=== PATIENT | female | born 1930 | race Caucasian/White ===

== ENCOUNTER 2019-01-31 13:42 | Inpatient (IN) ==
[2019-01-31] MEDS ORDERED: 0.9 % Sodium Chloride 1,000 ML IVC ONE (14:02)
--- NOTE | 2019-01-31 14:05 | Emergency Department Note ---
Disposition Clinical Impression: Near syncope, NSTEMI (non-ST elevated myocardial infarction) Fatigue Qualifiers: Fatigue type: unspecified Qualified Code(s): R53.83 - Other fatigue Disposition: Admitted As Inpatient Condition: Good Referrals: Maco Rollins MD [Primary Care Provider] - Forms: ED Satisfaction Letter Time of Disposition: 17:20 Dizziness HPI - General Chief Complaint: ED Dizziness Stated Complaint: Hypotension "woozy" Time Seen by Provider: 01/31/19 13:50 Source: patient Mode of arrival: wheelchair Limitations: no limitations Nursing Notes Reviewed: Yes Vital Signs Reviewed: Yes - History of Present Illness HPI Narrative: Patient is an 88-year-old female with past medical history of hypertension, hyperlipidemia, previous CVA and is currently on aspirin 325 mg daily. She presents today due to concern for near syncope and mild confusion. Patient states that she was at home about an hour or hour and a half prior to arrival cooking dinner. She had been standing in her kitchen. She sat down at her table and began to feel lightheaded like she was going to pass out. She also felt very fatigued. She denied any symptoms of numbness, tingling, weakness, facial droop, slurred speech, chest pain, shortness breath, nausea, vomiting, diarrhea, abdominal pain, chest pain. She said that the symptoms lasted for about 30 or 45 minutes and then went away. Her family member states that she was somewhat listless and very slow to respond to questions during this episode. She denies ever having anything like this happen before. She currently states that she has no symptoms of lightheadedness but she just feels overall fatigued. Denies any previous SC or stent history. She did not fall, did not hit her head, denies any neck or back pain. She states that she took a blood pressure home with a wrist cuff and it was systolic 118. - Related Data Home Medications Medication Instructions Recorded Confirmed Bisoprolol/HCTZ 5/6.25 [Ziac 1 tab PO BID 03/04/16 01/31/19 5/6.25] [place]-3/Dha/Epa/Fish Oil [Fish Oil 1 cap PO HS 03/04/16 01/31/19 1,000 mg Softgel] Omeprazole [PriLOSEC] 20 mg PO DAILY 03/04/16 01/31/19 Atorvastatin [Lipitor] 40 mg PO DAILY 01/31/19 01/31/19 Loratadine [Allergy Relief] 10 mg PO DAILY 01/31/19 01/31/19 Losartan Potassium 25 mg PO DAILY 01/31/19 01/31/19 Multivit/Ca/Min/Fe/FA [Thera M 1 tab PO DAILY 01/31/19 01/31/19 Plus] Oxybutynin Chloride [Ditropan Xl] 10 mg PO DAILY 01/31/19 01/31/19 Previous Rx's Medication Instructions Recorded Aspirin 325 mg PO DAILY #30 tablet 08/26/16 Allergies Allergy/AdvReac Type Severity Reaction Status Date / Time No Known Allergies Allergy Verified 02/18/16 13:11 All systems ED: reviewed and negative except as stated. Constitutional: Denies: fever Cardiovascular: Denies: chest pain Respiratory: Denies: dyspnea Gastrointestinal: Denies: abdominal pain, nausea, vomiting, diarrhea Genitourinary: Denies: urgency, dysuria Musculoskeletal: Denies: neck pain Neurological: Reports: other (light headed and mild confusion). Denies: headache, weakness, numbness, paresthesias Endocrine: Reports: fatigue Past Medical History - Past Medical History Attestation: Yes The following information was validated with the patient. Source: patient Medical history: Reports: GERD, hyperlipidemia, hypertension, other Surgical history: Reports: other Psychiatric history: Reports: no psych history - Social History Smoking Status: Never smoker Smokeless Tobacco Status: No Alcohol use: Reports: none, occasionally Drug use: Reports: none Physical Exam - General Limitations: no limitations General appearance: alert, in no apparent distress - Head Head exam: atraumatic, normocephalic, normal inspection - Eye Eye exam: Present: normal appearance, PERRL, EOMI - ENT ENT exam: normal oropharynx, other (Mildly tacky mucous membranes) - Neck Neck exam: Present: normal inspection, full ROM, trachea midline - Chest Chest inspection: Present: normal inspection, symmetric chest wall rise - Respiratory Respiratory exam: Present: normal lung sounds bilaterally - Cardiovascular Cardiovascular exam: Present: regular rate, normal rhythm, normal heart sounds - Abdominal Exam Abdominal exam: Present: soft, Non-Tender. Absent: tenderness, distention, guarding, rebound, rigidity - Extremities Exam Extremities exam: Present: normal inspection, full ROM. Absent: tenderness, pedal edema - Neurological Exam Neurological exam: Present: alert, oriented X3, CN II-XII intact. Absent: motor sensory deficit - Expanded Neurological Exam Patient oriented to: Present: person, place, time Speech: Present: fluid speech Cranial nerves: EOM function (II, III, IV, ): Normal, facial sensation (V): Normal, facial palsy (VII): Normal, spinal accessory function (XI): Normal, ton pramod deviation (XII): Normal Cerebellar function: finger to nose: Normal Motor strength - LUE: 5/5 Motor strength - RUE: 5/5 Motor strength - LLE: 5/5 Motor strength - RLE: 5/5 Sensory exam upper extremity: light touch: Normal Sensory exam lower extremity: light touch: Normal Coma Scale Eye Opening: Spontaneous Coma Scale Motor Response: Obeys Commands Coma Scale Verbal Response: Oriented Coma Scale Total: 15 - Psychiatric Psychiatric exam: Present: normal affect, normal mood - Skin Skin exam: Present: warm, dry, intact, normal color Course Course Narrative: Patient's systolic blood pressure was 108 on presentation. Otherwise, the rest of vitals within normal limits on my exam. NIH of 0. No focal neurologic deficits. Rest of physical exam is benign. Patient currently has fatigue but no other symptoms. Some of her symptoms sounds vasovagal in nature. However, she does have a stroke history in her symptoms were prolonged for about 30 or 45 minutes. We will go ahead and obtain CT the head. Also obtain basic blood work, EKG, chest x-ray, troponin. We will also give the patient 1 L normal saline bolus that she had mildly tacky mucous membranes on presentation and systolic blood pressure was 108. We will reevaluate after fluids and labs. 15:40 chest x-ray negative for any acute cardiopulmonary process. Troponin 0.23. EKG shows normal sinus rhythm with no acute ST elevation or depression. There are some T-wave inversions in lead 3, V4 through V6. Patient was reevaluated and she still has no chest pain or shortness of breath. She states that symptomatically, she is feeling less fatigued. We discussed starting her on heparin and admitting for further care for possible NSTEMI. She is agreeable to this plan and has no contra indications to heparin at this time. Currently waiting on head CT and then will admit for further care. 17:[address] negative. 17:[address] Mendieta. Chest X-Ray 01/31/19 14:01 IMPRESSION: No acute process. Stable exam. D/ / Andry Beavers MD / Andry Beavers MD Interpreting Provider: Andry Beavers MD Head CT 01/31/19 14:01 IMPRESSION: No acute intracranial abnormality. [id number] cerebral atrophy appropriate for age. Mild chronic ischemic changes also present. No significant change from the prior study. D/ / Ab Robbins MD / Ab Robbins MD Interpreting Provider: Ab Robbins MD Chest X-Ray 01/31/19 14:01 IMPRESSION: No acute process. Stable exam. D/ / Andry Beavers MD / Andry Beavers MD Interpreting Provider: Andry Beavers MD Vital Signs Temperature 97.8 F 01/31/19 13:44 Pulse Rate 54 01/31/19 13:44 Respiratory Rate 18 01/31/19 13:44 Blood Pressure 108/66 01/31/19 13:44 O2 Sat by Pulse Oximetry 93 01/31/19 13:44 Temperature 97.8 F 01/31/19 13:44 Pulse Rate 55 01/31/19 15:10 Respiratory Rate 18 01/31/19 15:10 Blood Pressure 124/54 01/31/19 15:10 O2 Sat by Pulse Oximetry 100 01/31/19 15:10 Oxygen Delivery Oxygen Delivery Room Air Dizziness - MDM Narrative Medical decision making narrative: Patient's systolic blood pressure was 108 on presentation. Otherwise, the rest of vitals within normal limits on my exam. NIH of 0. No focal neurologic deficits. Rest of physical exam is benign. Patient currently has fatigue but no other symptoms. Some of her symptoms sounds vasovagal in nature. However, she does have a stroke history in her symptoms were prolonged for about 30 or 45 minutes. We will go ahead and obtain CT the head. Also obtain basic blood work, EKG, chest x-ray, troponin. We will also give the patient 1 L normal saline bolus that she had mildly tacky mucous membranes on presentation and systolic blood pressure was 108. We will reevaluate after fluids and labs. 15:40 chest x-ray negative for any acute cardiopulmonary process. Troponin 0.23. EKG shows normal sinus rhythm with no acute ST elevation or depression. There are some T-wave inversions in lead 3, V4 through V6. Patient was reevaluated and she still has no chest pain or shortness of breath. She states that symptomatically, she is feeling less fatigued. We discussed starting her on heparin and admitting for further care for possible NSTEMI. She is agreeable to this plan and has no contra indications to heparin at this time. Currently waiting on head CT and then will admit for further care. 17:[address] negative. 17:[address] Mendieta. - Medical Records Medical records reviewed: Yes I reviewed the patient's medical records. - Lab Data Lab results reviewed: Yes I reviewed the patient's lab results. Result diagrams: 01/31/19 15:55 01/31/19 14:29 Lab Results 01/31/19 01/31/19 01/31/19 Range/Units 14:24 14:29 14:29 WBC 8.0 (4.3-11.1) K/mcL RBC 4.21 (3.82-4.97) M/mcL Hgb 13.0 (11.5-15.4) g/dL Hct 39.5 (35.3-44.9) % MCV 93.8 (83.0-100.0) fL MCH 30.9 (28.0-33.3) pg MCHC 32.9 (31.6-35.5) g/dL RDW 13.5 (11.5-14.5) % Plt Count 237 (140-400) K/mcL MPV 9.4 (9.4-12.4) fL Immature Gran % 0.6 (0-4) % Seg Neutrophils % 62.4 % Lymphocytes % 25.9 % Monocytes % 7.6 % Eosinophils % 2.4 % Basophils % 1.1 % Neutrophils # 5.0 (1.6-8.9) K/mcL Lymphocytes # 2.1 (0.6-4.6) K/mcL Monocytes # 0.6 (0.0-1.3) K/mcL Eosinophils # 0.2 (0.0-0.6) K/mcL Basophils # 0.1 (0.0-0.2) K/mcL PT (9.4-12.1) Seconds INR Heparin Anti-Xa, Unfract (0.30-0.70) IU/mL Sodium 136 (136-145) mEq/L Potassium 4.4 (3.5-5.1) mEq/L Chloride 105 (98-107) mEq/L Carbon Dioxide 21 L (23-29) mEq/L BUN 35 H (8-23) mg/dL Creatinine 1.22 H (0.60-1.20) mg/dL Est GFR ( Amer) 51 L (> 60) Est GFR (Non-Af Amer) 42 L (> 60) BUN/Creatinine Ratio 29 H (6-26) Glucose 130 H (70-105) mg/dL Calculated Osmolality 292 (280-300) Calcium 9.7 (8.6-10.3) mg/dL Total Bilirubin 0.4 (0.3-1.0) mg/dL AST 18 (13-39) Units/L ALT 13 (7-52) Units/L Alkaline Phosphatase 64 (34-104) Units/L Troponin I 0.23 H* (< 0.04) ng/mL Serum Total Protein 6.9 (6.4-8.9) g/dL Albumin 4.1 (3.5-5.7) g/dL Globulin 2.8 (2.4-3.5) g/dL Albumin/Globulin Ratio 1.5 (1.1-2.2) Urine Color Yellow (Yellow) Urine Clarity Clear (Clear) Urine pH 5.0 (5.0-8.0) pH Units Ur Specific [place] 1.026 H (1.010-1.025) Urine Protein Negative (Neg-Trace) mg/dL Urine Glucose (UA) Normal (Normal) mg/dL Urine Ketones Negative (Negative) mg/dL Urine Blood Negative (Negative) Urine Nitrite Negative (Negative) Urine Bilirubin Small H (Negative) Urine Urobilinogen Normal (Normal) mg/dL Ur Leukocyte Esterase Small H (Negative) Urine Microscopic RBC 0-3 (0-3) per hpf Urine Microscopic WBC 0-3 (0-3) per hpf Ur Squamous Epith Cells Many H (None-Few) per lpf Urine Bacteria None Seen (None-Few) per hpf Hyaline Casts None Seen (None-Few) per lpf Ur Culture Indicated? NO. A (NO) 01/31/19 01/31/19 Range/Units 15:55 15:55 WBC 10.9 (4.3-11.1) K/mcL RBC 4.14 (3.82-4.97) M/mcL Hgb 12.7 (11.5-15.4) g/dL Hct 39.0 (35.3-44.9) % MCV 94.2 (83.0-100.0) fL MCH 30.7 (28.0-33.3) pg MCHC 32.6 (31.6-35.5) g/dL RDW 13.4 (11.5-14.5) % Plt Count 237 (140-400) K/mcL MPV 9.3 L (9.4-12.4) fL Immature Gran % (0-4) % Seg Neutrophils % % Lymphocytes % % Monocytes % % Eosinophils % % Basophils % % Neutrophils # (1.6-8.9) K/mcL Lymphocytes # (0.6-4.6) K/mcL Monocytes # (0.0-1.3) K/mcL Eosinophils # (0.0-0.6) K/mcL Basophils # (0.0-0.2) K/mcL PT 10.2 (9.4-12.1) Seconds INR 0.9 Heparin Anti-Xa, Unfract 0.02 L (0.30-0.70) IU/mL Sodium (136-145) mEq/L Potassium (3.5-5.1) mEq/L Chloride (98-107) mEq/L Carbon Dioxide (23-29) mEq/L BUN (8-23) mg/dL Creatinine (0.60-1.20) mg/dL Est GFR ( Amer) (> 60) Est GFR (Non-Af Amer) (> 60) BUN/Creatinine Ratio (6-26) Glucose (70-105) mg/dL Calculated Osmolality (280-300) Calcium (8.6-10.3) mg/dL Total Bilirubin (0.3-1.0) mg/dL AST (13-39) Units/L ALT (7-52) Units/L Alkaline Phosphatase (34-104) Units/L Troponin I (< 0.04) ng/mL Serum Total Protein (6.4-8.9) g/dL Albumin (3.5-5.7) g/dL Globulin (2.4-3.5) g/dL Albumin/Globulin Ratio (1.1-2.2) Urine Color (Yellow) Urine Clarity (Clear) Urine pH (5.0-8.0) pH Units Ur Specific [place] (1.010-1.025) Urine Protein (Neg-Trace) mg/dL Urine Glucose (UA) (Normal) mg/dL Urine Ketones (Negative) mg/dL Urine Blood (Negative) Urine Nitrite (Negative) Urine Bilirubin (Negative) Urine Urobilinogen (Normal) mg/dL Ur Leukocyte Esterase (Negative) Urine Microscopic RBC (0-3) per hpf Urine Microscopic WBC (0-3) per hpf Ur Squamous Epith Cells (None-Few) per lpf Urine Bacteria (None-Few) per hpf Hyaline Casts (None-Few) per lpf Ur Culture Indicated? (NO) - Radiology Data Radiology results reviewed: Yes I reviewed the patient's radiology results. - EKG Data EKG attestation: Yes I reviewed and interpreted this EKG. EKG results narrative: 01/31/2019 at 14:09. Sinus rhythm. Rate 55. ME 206. QTC 460. Left axis deviation. No acute ST elevation or depression. T wave inversions in lead III, V4-V6 S.B.A.R. - S.B.A.R. Situation: Demographics, MOA Background: Presenting Complaint, Relevant PMH, Meds, & Allergies Assessment: Vital Signs, Course and respsone to treatment, Exam Concerns, Patient/Family Expectation, Pertinant Lab Results Recommendation: Barrier(s) to disposition, Recommendation based on pending studies, treatments, or consults S.B.A.RKajal Report Given to: Dr. Anam WareAHeather Repor Time: 17:21 NIH Stroke Scale - Level of Consciousness LOC: Alert - LOC Questions LOC Questions: Answers both correctly - LOC Commands LOC Commands: Performs both correctly - Best Gaze Best Gaze: Normal - Visual Visual: No visual loss - Facial Palsy Facial Palsy: Normal - Motor Arms Motor Arm-Left: No drift for 10 seconds Motor Arm-Right: No drift for 10 seconds - Motor Legs Motor Leg-Left: No drift for 5 seconds Motor Leg-Right: No drift for 5 seconds - Limb Ataxia Limb Ataxia: Absent of affected limb too weak to perform exam - Sensory Sensory: Normal - Best Language Best Language: No aphasia - Dysarthria Dysarthria: Normal - Extinction and Inattention Extinction and Inattention: Normal - NIHSS Total Score NIHSS Total Score: 0
--- NOTE | 2019-01-31 14:06 | Emergency Department Note ---
Disposition Clinical Impression: Fatigue, Near syncope, NSTEMI (non-ST elevated myocardial infarction) Disposition: Admitted As Inpatient Condition: Good General Adult HPI - General Chief complaint: ED Dizziness Stated complaint: Hypotension "woozy" Time Seen by Provider: 01/31/19 13:50 Source: patient Limitations: no limitations - History of Present Illness Pain Scale: 0 - Related Data Home Medications Medication Instructions Recorded Confirmed RX: Bisoprolol/HCTZ 5/6.25 [Ziac 1 tab PO BID 03/04/16 01/31/19 5/6.25] RX: [place]-3/Dha/Epa/Fish Oil [Fish 1 cap PO HS 03/04/16 01/31/19 Oil 1,000 mg Softgel] RX: Omeprazole [PriLOSEC] 20 mg PO DAILY 03/04/16 01/31/19 Loratadine [Allergy Relief] 10 mg PO DAILY 01/31/19 01/31/19 Oxybutynin Chloride [Ditropan Xl] 10 mg PO DAILY 01/31/19 01/31/19 RX: Atorvastatin [Lipitor] 40 mg PO DAILY 01/31/19 01/31/19 RX: Losartan Potassium 25 mg PO DAILY 01/31/19 01/31/19 RX: Multivit/Ca/Min/Fe/FA [Thera M 1 tab PO DAILY 01/31/19 01/31/19 Plus] Previous Rx's Medication Instructions Recorded RX: Aspirin 325 mg PO DAILY #30 tablet 08/26/16 Allergies Allergy/AdvReac Type Severity Reaction Status Date / Time No Known Allergies Allergy Verified 02/18/16 13:11 Past Medical History - Past Medical History Medical history: Reports: GERD, hyperlipidemia, hypertension, other Surgical history: Reports: other Psychiatric history: Reports: no psych history - Social History Smoking Status: Never smoker Smokeless Tobacco Status: No Alcohol use: Reports: none, occasionally Drug use: Reports: none Physical Exam - General Limitations: no limitations General appearance: alert, in no apparent distress Course Vital Signs Temperature 97.8 F 01/31/19 13:44 Pulse Rate 54 01/31/19 13:44 Respiratory Rate 18 01/31/19 13:44 Blood Pressure 108/66 01/31/19 13:44 O2 Sat by Pulse Oximetry 93 01/31/19 13:44 Temperature 98.0 F 04/21/19 18:36 Pulse Rate 51 01/31/19 18:36 Respiratory Rate 16 01/31/19 18:36 Blood Pressure 194/79 01/31/19 18:36 O2 Sat by Pulse Oximetry 97 01/31/19 18:36 Oxygen Delivery Oxygen Delivery Room Air Medical Decision Making - Lab Data Result diagrams: 01/31/19 15:55 01/31/19 14:29 Lab Results 01/31/19 01/31/19 01/31/19 Range/Units 14:24 14:29 14:29 WBC 8.0 (4.3-11.1) K/mcL RBC 4.21 (3.82-4.97) M/mcL Hgb 13.0 (11.5-15.4) g/dL Hct 39.5 (35.3-44.9) % MCV 93.8 (83.0-100.0) fL MCH 30.9 (28.0-33.3) pg MCHC 32.9 (31.6-35.5) g/dL RDW 13.5 (11.5-14.5) % Plt Count 237 (140-400) K/mcL MPV 9.4 (9.4-12.4) fL Immature Gran % 0.6 (0-4) % Seg Neutrophils % 62.4 % Lymphocytes % 25.9 % Monocytes % 7.6 % Eosinophils % 2.4 % Basophils % 1.1 % Neutrophils # 5.0 (1.6-8.9) K/mcL Lymphocytes # 2.1 (0.6-4.6) K/mcL Monocytes # 0.6 (0.0-1.3) K/mcL Eosinophils # 0.2 (0.0-0.6) K/mcL Basophils # 0.1 (0.0-0.2) K/mcL PT (9.4-12.1) Seconds INR Heparin Anti-Xa, Unfract (0.30-0.70) IU/mL Sodium 136 (136-145) mEq/L Potassium 4.4 (3.5-5.1) mEq/L Chloride 105 (98-107) mEq/L Carbon Dioxide 21 L (23-29) mEq/L BUN 35 H (8-23) mg/dL Creatinine 1.22 H (0.60-1.20) mg/dL Est GFR ( Amer) 51 L (> 60) Est GFR (Non-Af Amer) 42 L (> 60) BUN/Creatinine Ratio 29 H (6-26) Glucose 130 H (70-105) mg/dL Calculated Osmolality 292 (280-300) Calcium 9.7 (8.6-10.3) mg/dL Total Bilirubin 0.4 (0.3-1.0) mg/dL AST 18 (13-39) Units/L ALT 13 (7-52) Units/L Alkaline Phosphatase 64 (34-104) Units/L Troponin I 0.23 H* (< 0.04) ng/mL Serum Total Protein 6.9 (6.4-8.9) g/dL Albumin 4.1 (3.5-5.7) g/dL Globulin 2.8 (2.4-3.5) g/dL Albumin/Globulin Ratio 1.5 (1.1-2.2) Urine Color Yellow (Yellow) Urine Clarity Clear (Clear) Urine pH 5.0 (5.0-8.0) pH Units Ur Specific [place] 1.026 H (1.010-1.025) Urine Protein Negative (Neg-Trace) mg/dL Urine Glucose (UA) Normal (Normal) mg/dL Urine Ketones Negative (Negative) mg/dL Urine Blood Negative (Negative) Urine Nitrite Negative (Negative) Urine Bilirubin Small H (Negative) Urine Urobilinogen Normal (Normal) mg/dL Ur Leukocyte Esterase Small H (Negative) Urine Microscopic RBC 0-3 (0-3) per hpf Urine Microscopic WBC 0-3 (0-3) per hpf Ur Squamous Epith Cells Many H (None-Few) per lpf Urine Bacteria None Seen (None-Few) per hpf Hyaline Casts None Seen (None-Few) per lpf Ur Culture Indicated? NO. A (NO) 01/31/19 01/31/19 Range/Units 15:55 15:55 WBC 10.9 (4.3-11.1) K/mcL RBC 4.14 (3.82-4.97) M/mcL Hgb 12.7 (11.5-15.4) g/dL Hct 39.0 (35.3-44.9) % MCV 94.2 (83.0-100.0) fL MCH 30.7 (28.0-33.3) pg MCHC 32.6 (31.6-35.5) g/dL RDW 13.4 (11.5-14.5) % Plt Count 237 (140-400) K/mcL MPV 9.3 L (9.4-12.4) fL Immature Gran % (0-4) % Seg Neutrophils % % Lymphocytes % % Monocytes % % Eosinophils % % Basophils % % Neutrophils # (1.6-8.9) K/mcL Lymphocytes # (0.6-4.6) K/mcL Monocytes # (0.0-1.3) K/mcL Eosinophils # (0.0-0.6) K/mcL Basophils # (0.0-0.2) K/mcL PT 10.2 (9.4-12.1) Seconds INR 0.9 Heparin Anti-Xa, Unfract 0.02 L (0.30-0.70) IU/mL Sodium (136-145) mEq/L Potassium (3.5-5.1) mEq/L Chloride (98-107) mEq/L Carbon Dioxide (23-29) mEq/L BUN (8-23) mg/dL Creatinine (0.60-1.20) mg/dL Est GFR ( Amer) (> 60) Est GFR (Non-Af Amer) (> 60) BUN/Creatinine Ratio (6-26) Glucose (70-105) mg/dL Calculated Osmolality (280-300) Calcium (8.6-10.3) mg/dL Total Bilirubin (0.3-1.0) mg/dL AST (13-39) Units/L ALT (7-52) Units/L Alkaline Phosphatase (34-104) Units/L Troponin I (< 0.04) ng/mL Serum Total Protein (6.4-8.9) g/dL Albumin (3.5-5.7) g/dL Globulin (2.4-3.5) g/dL Albumin/Globulin Ratio (1.1-2.2) Urine Color (Yellow) Urine Clarity (Clear) Urine pH (5.0-8.0) pH Units Ur Specific [place] (1.010-1.025) Urine Protein (Neg-Trace) mg/dL Urine Glucose (UA) (Normal) mg/dL Urine Ketones (Negative) mg/dL Urine Blood (Negative) Urine Nitrite (Negative) Urine Bilirubin (Negative) Urine Urobilinogen (Normal) mg/dL Ur Leukocyte Esterase (Negative) Urine Microscopic RBC (0-3) per hpf Urine Microscopic WBC (0-3) per hpf Ur Squamous Epith Cells (None-Few) per lpf Urine Bacteria (None-Few) per hpf Hyaline Casts (None-Few) per lpf Ur Culture Indicated? (NO) Critical Care Time Critical Care Time: Yes Total Critical Care Time: 30 Attestation: The high probability of a clinically significant, sudden or life threatening deterioration of the [] system(s) required my full and direct attention, intervention and personal management. The aggregate critical care time was [] minutes. This time is in addition to time spent performing reported procedures but includes the following: [] Data Review and interpretation [] Patient assessment and monitoring of vital signs [] Documentation [] Medication orders and management Attestation Statement - Attestation Attestation: I examined this patient and my medical decision-making was reviewed with the Resident Physician. I agree with the documented findings, disposition and treatment plan as described except to the extent set forth below. Face to face time provided Patient to ED with lightheadedness and low BP. Triage vitals reviewed by me. Patient appears in no acute distress on exam. I attest to supervising the resident physician's interpretation of the ECG
[2019-01-31 14:32] LABS: Bilirubin,Urine Small (Negative); Blood,Urine Negative (Negative); Clarity,Urine Clear (Clear); Color,Urine Yellow (Yellow); Glucose,Urine (UA) Normal (Normal); Ketones,Urine Negative (Negative); Leukocyte Esterase,Urine Small (Negative); Nitrite,Urine Negative (Negative); Protein,Urine Negative (Neg-Trace); Specific Gravity,Urine 1.026 (1.010-1.025); Urobilinogen,Urine Normal (Normal)
[2019-01-31 14:34] LABS: Bacteria,Urine None Seen per hpf (None-Few); Hyaline Casts,Urine None Seen per lpf (None-Few); RBC,Urine 0-3 per hpf (0-3); Squamous Epithelial Cell,Urine Many per lpf (None-Few); WBC,Urine 0-3 per hpf (0-3)
[2019-01-31 14:54] LABS: Basophils # 0.1 K/mcL (0.0-0.2); Basophils % 1.1 %; Eosinophils # 0.2 K/mcL (0.0-0.6); Eosinophils % 2.4 %; Hematocrit 39.5 % (35.3-44.9); Immature Granulocytes % 0.6 % (0-4); Lymphocytes # 2.1 K/mcL (0.6-4.6); Lymphocytes % 25.9 %; Mean Corpuscular HGB Conc 32.9 g/dL (31.6-35.5); Mean Corpuscular Hemoglobin 30.9 pg (28.0-33.3); Mean Corpuscular Volume 93.8 fL (83.0-100.0); Mean Platelet Volume 9.4 fL (9.4-12.4); Monocytes # 0.6 K/mcL (0.0-1.3); Monocytes % 7.6 %; Platelet Count 237 K/mcL (140-400); Red Blood Count 4.21 M/mcL (3.82-4.97); Red Cell Distribution Width 13.5 % (11.5-14.5); Segmented Neutrophils % 62.4 %
[2019-01-31 15:16] LABS: Albumin 4.1 g/dL (3.5-5.7); Albumin/Globulin Ratio 1.5 (1.1-2.2); Bilirubin,Total 0.4 mg/dL (0.3-1.0); Calcium 9.7 mg/dL (8.6-10.3); Globulin 2.8 g/dL (2.4-3.5); Potassium 4.4 mEq/L (3.5-5.1); Total Protein 6.9 g/dL (6.4-8.9)
[2019-01-31 15:19] LABS: Troponin I 0.23 ng/mL (< 0.04)
[2019-01-31] MEDS ORDERED: *HR* Heparin 5,000 UNIT/ML VIAL IVP ONE ×2 (15:34→15:46)
[2019-01-31] MEDS ORDERED: *HR* Heparin 5,000 UNIT/ML VIAL IVP PRN ×4 (15:34→15:46)
[2019-01-31] MEDS ORDERED: Heparin 25,000 UNIT/250 ML D5W 25,000 UNIT/250 ML IV.SOLN IVC SCH (15:45)
[2019-01-31 16:05] LABS: Hemoglobin 12.7 g/dL (11.5-15.4); Mean Corpuscular HGB Conc 32.6 g/dL (31.6-35.5); Mean Corpuscular Hemoglobin 30.7 pg (28.0-33.3); Mean Corpuscular Volume 94.2 fL (83.0-100.0); Mean Platelet Volume 9.3 fL (9.4-12.4); Platelet Count 237 K/mcL (140-400); Red Blood Count 4.14 M/mcL (3.82-4.97); Red Cell Distribution Width 13.4 % (11.5-14.5)
[2019-01-31 16:19] LABS: Heparin anti-factor XA UFH 0.02 IU/mL (0.30-0.70)
[2019-01-31 16:20] LABS: INR 0.9; Prothrombin Time 10.2 Seconds (9.4-12.1)
[2019-01-31] MEDS: Heparin 25,000 UNIT/250 ML D5W 25,000 UNIT/250 ML IV.SOLN IVC SCH (17:17)
[2019-01-31] MEDS ORDERED: Naloxone 0.4 MG/ML INJ IVP PRN (17:49)
--- NOTE | 2019-01-31 17:58 | Internal Med History&Physical ---
Date of Encounter: 02/01/19 Time of Encounter: 17:56 Internal Medicine - H&P: HPI Chief complaint: lightheadness Admitted From: Home Plans for Post Hospital Care: Home History of present illness: Ms. Pritchett is a 88 year old female past medical history of hypertension, hyperlipidemia, CVA in 2016 with no residual symptoms came in with complain of lightheadedness. Patient called her full duties afternoon and after she sat down she started feeling dizziness and lightheadedness. During the episode per family member she was slow to respond and she mentioned she was trying not to pass out. She denied any chest pain or difficulty breathing or palpitation associated with it. The episode lasted about 30-40 minutes. Patient did not experience any loss of consciousness or fall. She denies any previous similar episodes. She does not have any previous cardiac history. She takes aspirin 325 after her stroke. She denies any previous cardiac catheterization or stent. Patient was related kidney ER and was found to have troponin of 0.23 and creatinine of 1.22. Head CT was unremarkable as well as chest x-ray. She received 1 L of IV fluids and was started on heparin for NSTEMI admission was requested for further management. Past Med Surg Social Fam HX - Past Medical History Medical history: CVA, GERD, hyperlipidemia, hypertension, other Additional medical history: RIGHT ROTATOR CUFF TENDINOPATHY. RIGHT SHOULDER KARINA N. INTRAMUSCULAR LIPOMA Psychiatric history: no psych history - Past Surgical History Surgical History: other Additional surgical history: RIGHT ROTATOR CUFF TEAR REPAIR 2003. BLAKE CATARCTS REMOVAL. D&C. COLONOSCOPY 2008. CHEST MASS EXCISION 11/01/14. 03/04/16 RIGHT CLAVICLE ORIF @[facility] W/DR JENNINGS - Social History Smoking Status: Never smoker Smokeless Tobacco Status: No Alcohol use: none, occasionally Drug use: none Current living situation: Home - Independent - Additional Family History Additional family history: Father had bladder ca. Mother had brain ca Internal Medicine - H&P: Meds Bisoprolol/HCTZ 5/6.25 [Ziac 5/6.25] 1 tab PO BID 03/04/16 [History] [place]-3/Dha/Epa/Fish Oil [Fish Oil 1,000 mg Softgel] 1 cap PO HS 03/04/16 [History] Omeprazole [PriLOSEC] 20 mg PO DAILY 03/04/16 [History] Aspirin 325 mg PO DAILY #30 tablet 08/26/16 [Rx] Atorvastatin [Lipitor] 40 mg PO DAILY 01/31/19 [History] Loratadine [Allergy Relief] 10 mg PO DAILY 01/31/19 [History] Losartan Potassium 25 mg PO DAILY 01/31/19 [History] Multivit/Ca/Min/Fe/FA [Thera M Plus] 1 tab PO DAILY 01/31/19 [History] Oxybutynin Chloride [Ditropan Xl] 10 mg PO DAILY 01/31/19 [History] Allergy/AdvReac Type Severity Reaction Status Date / Time No Known Allergies Allergy Verified 02/18/16 13:11 All Systems PM: A 10-system review of systems was performed and is negative for pertinent findings except as documented above in the HPI. - Constitutional Vitals: Temp Pulse Resp BP Pulse Ox 97.8 F 61 16 148/56 95 01/31/19 13:44 01/31/19 17:21 01/31/19 17:21 01/31/19 17:21 01/31/19 17:21 Exam: Constitutional: Vitals as noted. Conversant. No Apparent Distress. Eyes : Sclera white, conjunctiva clear, no lid lag, PEARLA. ENT : Grossly normal hearing. Oropharyngeal exam unremarkable. Moist mucus membranes. No JVD, no cervical lymphadenopathy. no thyromegaly or mass. Respiratory : Clear to auscultation bilaterally. No accessory muscle use, rales, rhonchi or wheezes Cardiovascular : bcardycardia, +S1, +S2. no murmur, gallop, rubs. No chest wall tenderness GI/Abdominal : Soft, Non-tender, Non-distended, normal bowel sounds, soft, no peritoneal signs. Musculoskeletal: no deformity noted. no edema or cyanosis. warm extremities, pulses palpable and symmetrical in UE/LE. no calf tenderness. Neurological: AO X3, CN II-XII grossly intact, grossly normal motor and sensory exam. Skin: No skin rash, lesions or ulcers noted. Pych: Good insight and judgement. Intact memory. AOx3. Internal Med - H&P Results - Labs CBC & Chem 7: 01/31/19 15:55 01/31/19 14:29 Labs: Short CBC 01/31/19 01/31/19 Range/Units 14:29 15:55 WBC 8.0 10.9 (4.3-11.1) K/mcL Hgb 13.0 12.7 (11.5-15.4) g/dL Hct 39.5 39.0 (35.3-44.9) % Plt Count 237 237 (140-400) K/mcL Neutrophils # 5.0 (1.6-8.9) K/mcL BMP 01/31/19 14:29 Sodium 136 Potassium 4.4 Chloride 105 Carbon Dioxide 21 L BUN 35 H Creatinine 1.22 H Glucose 130 H Calcium 9.7 Cardiac Enzymes 01/31/19 Range/Units 14:29 Troponin I 0.23 H* (< 0.04) ng/mL Liver Function 01/31/19 Range/Units 14:29 Total Bilirubin 0.4 (0.3-1.0) mg/dL AST 18 (13-39) Units/L ALT 13 (7-52) Units/L Alkaline Phosphatase 64 (34-104) Units/L Albumin 4.1 (3.5-5.7) g/dL Urine 01/31/19 Range/Units 14:24 Urine Color Yellow (Yellow) Urine Clarity Clear (Clear) Urine pH 5.0 (5.0-8.0) pH Units Ur Specific [place] 1.026 H (1.010-1.025) Urine Protein Negative (Neg-Trace) mg/dL Urine Glucose (UA) Normal (Normal) mg/dL - EKG Data -: EKG Interpreted by Myself EKG shows normal: sinus rhythm (t wave inversion in lead 3, V4-6. unchangd.) - Impressions ITS Impressions Chest X-Ray 01/31/19 14:01 IMPRESSION: No acute process. Stable exam. D/ / Andry Beavers MD / Andry Beavers MD Interpreting Provider: Andry Beavers MD Head CT 01/31/19 14:01 IMPRESSION: No acute intracranial abnormality. [id number] cerebral atrophy appropriate for age. Mild chronic ischemic changes also present. No significant change from the prior study. D/ / Ab Robbins MD / Ab Robbins MD Interpreting Provider: Ab Robbins MD - Assessment and Plan (1) NSTEMI (non-ST elevated myocardial infarction) Current Visit: Yes Status: Acute Assessment and plan: Patient with signs and symptoms of NSTEMI Currently without chest pain. EKG without new changes. Will trend troponin Continue patient's heparin Obtain echocardiogram We will consult cardiology for possible cardiac catheterization. Patient agreeable if needed. (2) Near syncope Current Visit: Yes Status: Acute Assessment and plan: Likely likely cardiac in origin Management as above (3) DVT prophylaxis Current Visit: No Status: Acute Assessment and plan: On heparin drip (4) HTN (hypertension) Current Visit: Yes Status: Acute Assessment and plan: Continue home bisoprolol/hctz. hold losartan. Qualifiers: Hypertension type: essential hypertension Qualified Code(s): I10 - Essential (primary) hypertension - Time Spent With Patient Total time spent is greater than 50% in coordination of care (as documented) at patient's floor/unit and/or counseling patient:
[2019-01-31] MEDS: Bisoprolol/HCTZ 5/6.25 TABLET PO SCH (21:00)
[2019-02-01 08:27] LABS: BUN/Creatinine Ratio 29 (6-26); Blood Urea Nitrogen 28 mg/dL (8-23); Calcium 9.6 mg/dL (8.6-10.3); Carbon Dioxide 26 mEq/L (23-29); Chloride 104 mEq/L (98-107); Chol/HDL Ratio 3.2 (0-4.9); Cholesterol 172 mg/dL (< 200); Glucose 120 mg/dL (70-105); HDL Cholesterol 53 mg/dL (40-59); LDL Cholesterol,Calculated 96 mg/dL (0-99); Magnesium 1.9 mg/dL (1.6-2.6); Osmolality,Calculated 295 (280-300); Phosphorous 3.5 mg/dL (2.7-4.5); Potassium 4.4 mEq/L (3.5-5.1); Sodium 139 mEq/L (136-145); Triglycerides 114 mg/dL (< 150); Troponin I 0.11 ng/mL (< 0.04); eGFR For Non-African Americans 54 (> 60)
[2019-02-01] MEDS: Aspirin 325 MG TABLET PO SCH (09:32)
--- NOTE | 2019-02-01 09:39 | Cardiology Consult Note ---
Date of Encounter: 02/01/19 Time of Encounter: 09:36 Assessment and Plan (1) NSTEMI (non-ST elevated myocardial infarction) Current Visit: Yes Status: Acute Medical therapy and cardiac catheterization. Maximize statin dose. Restart losartan (2) Hyperlipidemia Current Visit: No Status: Chronic Qualifiers: Hyperlipidemia type: pure hypercholesterolemia Qualified Code(s): E78.00 - Pure hypercholesterolemia, unspecified; E78.0 - Pure hypercholesterolemia Discussion w patient/family: The assessment and plan as outlined above was discussed with the patient and/or family members who expressed understanding and agreement. All questions were answered. Thank you for involving us in the care of your patient. Please call with any questions. History of Present Illness Consult date: 02/01/19 Consult reason: non stemi Chief complaint: nausea and lightheadedness History of present illness: Ms. Pritchett is a 88 year old female presents with 30 minutes of lightheadedness and nausea. She has cardiac risk factors consisting of her age, hyperlipidemia, hypertension and previous stroke. Her stroke was several years ago in his left her with no long-term disability. On the day of admission she was noted usual state of health until after cooking her Easter dinner. She did not develop na usea or significant lightheadedness. She denied any associated chest pressure, palpitations or dyspnea. There is no recent history of exertional chest pressure or dyspnea. She denies any previous syncope. Due to her age and overall condition and her daughter brought her to the emergency room. Here at the [facility] her troponins were positive in the setting of a normal renal function. Her EKG did not show acute injury. She has been stable overnight on IV heparin. Her presentation is consistent with a nonSTEMI. Antiplatelet therapy, maximization of her statin dose and beta ashley therapy will be continued. Blood pressure control with the reinstitution of her losartan will be made. Catheterization will be scheduled. Past Med Surg Social Fam HX - Past Medical History Medical history: CVA, GERD, hyperlipidemia, hypertension, other Additional medical history: RIGHT ROTATOR CUFF TENDINOPATHY. RIGHT SHOULDER PAIN. INTRAMUSCULAR LIPOMA Psychiatric history: no psych history - Past Surgical History Surgical History: other Additional surgical history: RIGHT ROTATOR CUFF TEAR REPAIR 2003. BLAKE CATARCTS REMOVAL. D&C. COLONOSCOPY 2008. CHEST MASS EXCISION 11/01/14. 03/04/16 RIGHT CLAVICLE ORIF @[place] W/DR JENNINGS - Social History Smoking Status: Never smoker Smokeless Tobacco Status: No Alcohol use: none, occasionally Drug use: none Medications and Allergies Bisoprolol/HCTZ 5/6.25 [Ziac 5/6.25] 1 tab PO BID 03/04/16 [History] [place]-3/Dha/Epa/Fish Oil [Fish Oil 1,000 mg Softgel] 1 cap PO HS 03/04/16 [History] Omeprazole [PriLOSEC] 20 mg PO DAILY 03/04/16 [History] Aspirin 325 mg PO DAILY #30 tablet 08/26/16 [Rx] Atorvastatin [Lipitor] 40 mg PO DAILY 01/31/19 [History] Loratadine [Allergy Relief] 10 mg PO DAILY 01/31/19 [History] Losartan Potassium 25 mg PO DAILY 01/31/19 [History] Multivit/Ca/Min/Fe/FA [Thera M Plus] 1 tab PO DAILY 01/31/19 [History] Oxybutynin Chloride [Ditropan Xl] 10 mg PO DAILY 01/31/19 [History] Allergy/AdvReac Type Severity Reaction Status Date / Time No Known Allergies Allergy Verified 02/18/16 13:11 All Systems Review: The remainder of the systems were reviewed and are negative OB review of systems positive worse for arthritic hip pain limiting her ambulation. - Musculoskeletal Musculoskeletal: other Physical Examination Vital Signs, Last 4 Hours Temp Pulse Resp BP Pulse Ox 02/01/19 07:38 97.6 F 47 16 176/68 97 General: Conversant HEENT: Atraumatic Neck: No JVD, Normal carotid pulses Cardiac: Reg Rate and Rhythm, Normal S1 and S2, No Murmur, Other (No carotid bruits.) Lungs: Normal Breath Sounds Neuro: Alert and responsive Abdomen: Soft, Non-Tender Musculoskeletal: No Chest Wall Tenderness Results 01/31/19 15:55 02/01/19 07:47 Lab Results 01/31/19 01/31/19 01/31/19 14:29 14:29 15:55 WBC 8.0 10.9 Hgb 13.0 12.7 Hct 39.5 39.0 Plt Count 237 237 INR Sodium 136 Potassium 4.4 Chloride 105 Carbon Dioxide 21 L BUN 35 H Creatinine 1.22 H Glucose 130 H Calcium 9.7 Magnesium Total Bilirubin 0.4 AST 18 ALT 13 Alkaline Phosphatase 64 Troponin I 0.23 H* 01/31/19 01/31/19 01/31/19 15:55 19:22 23:56 WBC Hgb Hct Plt Count INR 0.9 Sodium Potassium Chloride Carbon Dioxide BUN Creatinine Glucose Calcium Magnesium Total Bilirubin AST ALT Alkaline Phosphatase Troponin I 0.18 H* 0.12 H* 02/01/19 07:47 WBC Hgb Hct Plt Count INR Sodium 139 Potassium 4.4 Chloride 104 Carbon Dioxide 26 BUN 28 H Creatinine 0.97 Glucose 120 H Calcium 9.6 Magnesium 1.9 Total Bilirubin AST ALT Alkaline Phosphatase Troponin I 0.11 H* Consult Discharge Plan - Plan Referrals: Ayo,Maco Carter MD [Primary Care Provider] -
[2019-02-01] MEDS: Bisoprolol/HCTZ 5/6.25 TABLET PO SCH (09:45)
[2019-02-01] MEDS ORDERED: Bisoprolol/HCTZ 5/6.25 TABLET PO SCH (09:51)
[2019-02-01] MEDS ORDERED: Perflutren Lipid Microsphere 1.3 ML in 0.9 % Sodium Chloride 8.7 ML IVP ONE (09:53)
--- NOTE | 2019-02-01 12:26 | Internal Med Progress Note ---
Hospitalist Progress Note - Encounter Date of Encounter: 02/01/19 Time of Encounter: 10:28 - Subjective Interval History: Patient seen and examined this morning it was felt. No acute overnight events. Denies any further episode lightheadedness, chest pain, palpitation or shortness of breath. Denies new complaint. - Exam Vitals: Temp Pulse Resp BP Pulse Ox 97.6 F 52 16 150/70 100 02/01/19 07:38 02/01/19 12:03 02/01/19 07:38 02/01/19 12:03 02/01/19 09:49 Exam: Constitutional: In no distress Respiratory : CTAB, No accessory muscle use, rales, rhonchi or wheezes Cardiovascular : bradycardia, +S1, +S2. no murmur, gallop, rubs. No chest wall tenderness GI/Abdominal : Soft, Non-tender, Non-distended, normal bowel sounds, soft, no peritoneal signs. Musculoskeletal: no deformity noted. no edema, no calf tenderness. Neurological: AO X3, CN II-XII grossly intact, grossly normal motor and sensory exam. Skin: No skin rash, lesions or ulcers noted. - Assessment and Plan (1) NSTEMI (non-ST elevated myocardial infarction) Current Visit: Yes Status: Acute (2) Near syncope Current Visit: Yes Status: Acute (3) DVT prophylaxis Current Visit: No Status: Acute (4) HTN (hypertension) Current Visit: Yes Status: Acute - Summary of Assessment and Plan Summary of Assessment and Plan: NSTEMI -c/w heparin drip - f/u ECHO - Cardiology following. appreciate recommendations. Plan for [facility] HTN - c/w home bisoprolol/hctz. - resume losartan as renal function improved and BP elevated Mild hyperglycemia - Obtain A1c in morning. Near syncope - likely cardiac in origin - Management as above DVT prophylaxis - On heparin drip - Time Spent with Patient Total time spent is greater than 50% in coordination of care (as documented) at patient's floor/unit and/or counseling patient: Internal Medicine: Result - Labs CBC & Chem 7: 01/31/19 15:55 02/01/19 07:47 Labs: Short CBC 01/31/19 01/31/19 Range/Units 14:29 15:55 WBC 8.0 10.9 (4.3-11.1) K/mcL Hgb 13.0 12.7 (11.5-15.4) g/dL Hct 39.5 39.0 (35.3-44.9) % Plt Count 237 237 (140-400) K/mcL Neutrophils # 5.0 (1.6-8.9) K/mcL BMP 01/31/19 02/01/19 14:29 07:47 Sodium 136 139 Potassium 4.4 4.4 Chloride 105 104 Carbon Dioxide 21 L 26 BUN 35 H 28 H Creatinine 1.22 H 0.97 Glucose 130 H 120 H Calcium 9.7 9.6 Cardiac Enzymes 01/31/19 01/31/19 01/31/19 Range/Units 14:29 19:22 23:56 Troponin I 0.23 H* 0.18 H* 0.12 H* (< 0.04) ng/mL 02/01/19 Range/Units 07:47 Troponin I 0.11 H* (< 0.04) ng/mL Liver Function 01/31/19 Range/Units 14:29 Total Bilirubin 0.4 (0.3-1.0) mg/dL AST 18 (13-39) Units/L ALT 13 (7-52) Units/L Alkaline Phosphatase 64 (34-104) Units/L Albumin 4.1 (3.5-5.7) g/dL Urine 01/31/19 Range/Units 14:24 Urine Color Yellow (Yellow) Urine Clarity Clear (Clear) Urine pH 5.0 (5.0-8.0) pH Units Ur Specific [place] 1.026 H (1.010-1.025) Urine Protein Negative (Neg-Trace) mg/dL Urine Glucose (UA) Normal (Normal) mg/dL - ABG Interpretation ABG results: PT/INR, D-dimer PT 10.2 Seconds (9.4-12.1) 01/31/19 15:55 - Impressions Impressions Chest X-Ray 01/31/19 14:01 IMPRESSION: No acute process. Stable exam. D/ / Andry Beavers MD / Andry Beavers MD Interpreting Provider: Andry Beavers MD Head CT 04/21/19 14:01 IMPRESSION: No acute intracranial abnormality. [id number] cerebral atrophy appropriate for age. Mild chronic ischemic changes also present. No significant change from the prior study. D/ / Ab Robbins MD / Ab Robbins MD Interpreting Provider: Ab Robbins MD Consult Discharge Plan - Plan Referrals: Maco Rollins MD [Primary Care Provider] - (4) HTN (hypertension) Qualifiers: Hypertension type: essential hypertension Qualified Code(s): I10 - Essential (primary) hypertension
[2019-02-01] MEDS: Acetaminophen 325 MG TABLET PO PRN (14:55)
--- NOTE | 2019-02-01 16:23 | Electrocardiograph Report ---
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
[2019-02-01] MEDS ORDERED: hydrALAZINE 10 MG TABLET PO PRN (16:59)
[2019-02-01] MEDS ORDERED: Nitroglycerin 1 INCH/GM PACKET TP ONE (23:36)
[2019-02-02] MEDS ORDERED: Nitroglycerin 25 MG/250 ML INFUS..BTL IVC SCH (01:15)
[2019-02-02] MEDS: Heparin 25,000 UNIT/250 ML D5W 25,000 UNIT/250 ML IV.SOLN IVC SCH (01:42)
[2019-02-02] MEDS: Acetaminophen 325 MG TABLET PO PRN ×2 (05:41→22:00)
[2019-02-02 06:50] LABS: BUN/Creatinine Ratio 26 (6-26); Blood Urea Nitrogen 20 mg/dL (8-23); Calcium 9.6 mg/dL (8.6-10.3); Carbon Dioxide 25 mEq/L (23-29); Chloride 102 mEq/L (98-107); Cholesterol 166 mg/dL (< 200); Glucose 109 mg/dL (70-105); HDL Cholesterol 55 mg/dL (40-59); LDL Cholesterol,Calculated 78 mg/dL (0-99); Osmolality,Calculated 285 (280-300); Sodium 136 mEq/L (136-145); Triglycerides 163 mg/dL (< 150); eGFR For Non-African Americans > 60 (> 60)
--- NOTE | 2019-02-02 08:55 | Event Note ---
Date of Encounter: 02/02/19 Time of Encounter: 08:55 - Cardiology Event Note Laboratory Tests 01/31/19 01/31/19 01/31/19 14:29 19:22 23:56 Creatinine 1.22 H Est GFR (Non-Af Amer) 42 L Troponin I 0.23 H* 0.18 H* 0.12 H* LDL Cholesterol, Calc 02/01/19 02/02/19 07:47 05:21 Creatinine 0.76 Est GFR (Non-Af Amer) > 60 Troponin I 0.11 H* LDL Cholesterol, Calc 78 Echo shows EF 60-65%. On heparin drip and nitroglycerin drip for blood pressure control. Current systolic blood pressure in the 200s. On losartan 25 mg by mouth daily. Heart rates noted in the 50s. Patient to receive 10mg IV hydralazine per PRN order. We will add Norvasc 5 mg by mouth daily in attempt to wean glycerin drip to off. Plan for catheterization today if systolic blood pressure better controlled.
[2019-02-02 08:57] LABS: Estimated Average Glucose 140 mg/dl; Hemoglobin A1C 6.5 %
[2019-02-02] MEDS: Aspirin 325 MG TABLET PO SCH (09:03)
[2019-02-02] MEDS ORDERED: amLODIPine 5 MG TABLET PO SCH (09:45)
--- NOTE | 2019-02-02 10:02 | Internal Med Progress Note ---
Hospitalist Progress Note - Encounter Date of Encounter: 02/02/19 Time of Encounter: 10:02 - Subjective Interval History: Patient seen and examined this morning at bedside. No acute overnight events. Patient was started on nitroglycerin drip for elevated blood pressure overnight. She denies any chest pain or difficulty breathing. Has mild headache. Denies any abdominal pain. Somewhat stressed due to her blood pressure being high. Denies any lightheadedness or dizziness. - Exam Vitals: Temp Pulse Resp BP Pulse Ox 97.4 F L 53 16 202/112 94 02/02/19 07:46 02/02/19 07:46 02/02/19 04:56 02/02/19 07:46 02/02/19 07:46 Exam: Constitutional: In no distress Respiratory : CTAB, No accessory muscle use, rales, rhonchi or wheezes Cardiovascular : bradycardia, +S1, +S2. no murmur, gallop, rubs. No chest wall tenderness GI/Abdominal : Soft, Non-tender, Non-distended, normal bowel sounds, soft, no peritoneal signs. Musculoskeletal: no deformity noted. no edema, no calf tenderness. Neurological: AO X3, CN II-XII grossly intact, grossly normal motor and sensory exam. Skin: No skin rash, lesions or ulcers noted. - Assessment and Plan (1) NSTEMI (non-ST elevated myocardial infarction) Current Visit: Yes Status: Acute (2) Near syncope Current Visit: Yes Status: Acute (3) DVT prophylaxis Current Visit: No Status: Acute (4) HTN (hypertension) Current Visit: Yes Status: Acute - Summary of Assessment and Plan Summary of Assessment and Plan: NSTEMI - c/w heparin drip - ECHO with EF 60-65, Not all wall segments visualized, mild-mod AR, mild Pulm HTN. - Cardiology following. appreciate recommendations. Plan for [facility] today if BP better controlled. Uncontrolled HTN - Started on nitro drip overnight and home bisoprolol/hctz was stopped - c/w losartan. Started on amlodipine per cardiology. c/w nitro drip. Will use prn hydralazine for better BP control. Mild hyperglycemia - A1c in prediabetic range Near syncope - likely cardiac in origin - Management as above DVT prophylaxis - On heparin drip - Time Spent with Patient Total time spent is greater than 50% in coordination of care (as documented) at patient's floor/unit and/or counseling patient: Internal Medicine: Result - Labs CBC & Chem 7: 01/31/19 15:55 02/02/19 05:21 Labs: BMP 02/02/19 05:21 Sodium 136 Potassium 4.0 Chloride 102 Carbon Dioxide 25 BUN 20 Creatinine 0.76 Glucose 109 H Calcium 9.6 - ABG Interpretation ABG results: PT/INR, D-dimer PT 10.2 Seconds (9.4-12.1) 01/31/19 15:55 Consult Discharge Plan - Plan Referrals: Maco Rollins MD [Primary Care Provider] - (4) HTN (hypertension) Qualifiers: Hypertension type: essential hypertension Qualified Code(s): I10 - Essential (primary) hypertension
--- NOTE | 2019-02-02 11:07 | Event Note ---
Date of Encounter: 02/02/19 Time of Encounter: 11:00 - Cardiology Event Note Systolic blood pressure in the 160s now. Per nurse, IV nitroglycerin drip off. Patient reports past intolerance to Norvasc, will discontinue. Average heart rate past 12 hours 57. We will add low-dose Lopressor 12.5 mg by mouth twice a day and monitor heart rate.
[2019-02-02] MEDS ORDERED: ISOVUE-370 200 ML INFUS..BTL ONE (14:11)
[2019-02-02] MEDS ORDERED: Heparin 1,000 UNITS/500 mL 500 ML ONE (14:11)
[2019-02-02] MEDS ORDERED: Nitroglycerin 1,000 MCG/10 ML VIAL IV ONE (14:11)
[2019-02-02] MEDS ORDERED: *HR* Heparin 10,000 UNIT/10 ML VIAL ONE (14:11)
[2019-02-02] MEDS ORDERED: 0.9 % Sodium Chloride 1,000 ML ONE ×2 (14:11→15:05)
[2019-02-02] MEDS ORDERED: *HR* Midazolam HCl 2 MG/2 ML VIAL ONE (15:05)
[2019-02-02] MEDS ORDERED: *HR* FentaNYL (PF) 100 MCG/2 ML VIAL ONE (15:05)
--- NOTE | 2019-02-02 15:16 | Pre-Sedation Evaluation ---
Pre-sedation evaluation - Pre-sedation checklist Date of procedure: 02/02/19 Procedure: heart cath Recent Vitals: Last Vital Signs Temp 98 F 02/02/19 11:15 Pulse 70 02/02/19 11:15 Resp 16 02/02/19 04:56 BP 168/63 02/02/19 11:15 Pulse Ox 96 02/02/19 11:15 H&P (including ROS) documented in medical record: Yes Previous reaction to sedatives/anesthetics: No Dietary Status: NPO after Midnight Dentition: No loose teeth or bridges Possible difficult airway: No ASA Classification *see protocol: CLASS II-Mild systemic disease Plan of Care: Pt appropriate candidate for procedure/moderate/conscious sedation, Risks/benefits of procedure/sedation discussed w/ patient/family Cardiac Registry (Cardio Only) - Functional Capacity Functional Capacity: < 4 METS - Clincal Frailty Scale Clinical Frailty Scale: Mildly Frail
--- NOTE | 2019-02-02 16:05 | Event Note ---
Date of Encounter: 02/02/19 Time of Encounter: 16:00 - Cardiology Event Note Per Dr. Anisha Lobo, [facility] with no intervention warranted. Recommend BP optimization. Cardiology signing off, reconsult PRN, f/u arranged.
--- NOTE | 2019-02-02 16:09 | Invasive Diagnostic Lab Proc ---
Name: Carissa Pritchett Date of Study: 02/02/2019 Date: 1930 Ht: 63.0in Medical Record#: [id number] Age: 88 Wt: 152.12lb Gender: Female BSA: 1.72 Order #: [id number] BMI: 26.95 Physicians Procedure Physician: Sagrario Lobo MD, FACC Referring MD: Referring MD: Staff Name Position Time In Maryjo Hillman RT (R) Scrub 03:16 PM Germaine Knox RN Monitor 03:17 PM Sandrine Granda RN Drive Thru Order Taker 03:17 PM Procedures Performed Procedure L HRT ARTERY/VENTRICLE ANGIO Pre-Procedure Checklist Informed consent is complete signed and on chart. H&P is on chart. ID band is on and ID verified with patient. Patient NPO for procedure The procedure was described for the patient and questions were answered. ECG is on chart. Plan of Care Patient will tolerate the procedure without complications. Adequate level of comfort will be maintained. Hemodynamics will remain stable Patient will recover from procedure without complications. Respiratory function will be maintained. Cardiac rhythm will remain stable. Patient temperature will be maintained. Patient and/or family have verbalized understanding of the procedure. Patient Education Intravenous Access Time IV Size Location DC'd Fluid/Drip Rate Units RN 20g 1 /" Patent On Arrival Lt Antecubital 0.9NaCl ml/hr Allergies NKA Vital Signs Time BP (mmHg) HR (bpm) O2 Sat. RR (bpm) LOC 03:19 PM / % 5 = Fully awake and oriented or at pre-proc level 03:19 PM / % 5 = Fully awake and oriented or at pre-proc level 03:19 PM 194 / 78 71 99 % 16 03:23 PM 172 / 72 67 96 % 18 03:28 PM 175 / 69 67 99 % 20 03:33 PM 181 / 70 73 99 % 18 03:38 PM 187 / 78 77 99 % 20 03:43 PM 188 / 72 74 100 % 20 03:34 PM / % 5 = Fully awake and oriented or at pre-proc level Procedural Medications Time Medication Dose Units Method Given By 03:19 PM Versed 1 mg Intravenous Sandrine Granda RN 03:19 PM Fentanyl 25 mcg Intravenous Sandrine Granda RN 03:31 PM Lidocaine 2% 20 ml Subcutaneous Sagrario Lobo MD, FACC 03:17 PM Oxygen 2 L/min nasal cannula Sandrine Granda RN ASA Classification: CLASS II- Mild systemic disease (i.e. well-controlled diabetes, hypertension, asthma, cigarette smoking) Rick Score Preprocedure Postprocedure Activity 2- Moves 4 extremities sustained head lift Activity 2- Moves 4 extremities sustained head lift Circulation 2- SBP +/= 20 points of pre-anesthetic level Circulation 2- SBP +/= 20 points of pre-anesthetic level Consciousness 2- Awake and alert oriented x 3 Consciousness 2- Awake and alert oriented x 3 O2 Saturation 2- Able to maintain O2 satruation of 92% on room air O2 Saturation 2- Able to maintain O2 satruation of 92% on room air Respiratory 2- Able to deep breathe and cough well Respiratory 2- Able to deep breathe and cough well Total Score 10 Total Score 10 Contrast Agent: Isovue Diagnostic Contrast: 52 ml Total Contrast: 52 ml Fluoro Dose: 24 mGy Procedure Log Time Note Enter By 03:12 PM CathStat 03:15 PM ASA Class CLASS II- Mild systemic disease (i.e. well-controlled diabetes, hypertension, asthma, cigarette smoking) ejohnson 03:17 PM Maryjo Hillman RT (R) Position: Scrub Time in: 15:16 tsites 03:17 PM Pt arrived to laboratory secretary 2 at 15:17 ejohnson 03:17 PM Germaine Knox RN Position: Monitor Time in: 15:17 tsites 03:17 PM Sandrine Granda RN Position: Drive Thru Order Taker Time in: 15:17 tsites 03:17 PM Time: 15:17 Oxygen on at 2 L/min per nasal cannula by Sandrine Granda RN ejohnson 03:18 PM Vitals capture started with the following parameters, Patient=Adult, Interval=5 min, Initial Mrvjuldr=217 mmHg, Deflation Rate=5 mmHg, Cuff placed on Right Arm 03:18 PM Meet and greet completed ejohnson 03:18 PM Sign in performed according to hospital policy. Informed consent was obtained. ejohnson 03:18 PM Physician arrived 15:17 ejohnson 03:18 PM Time: 15:18 Patient comfortable and pain free: Yes ejohnson 03:19 PM Time: 15:19LOC: 5 = Fully awake and oriented or at pre-proc level ejohnson 03:19 PM Time: 15:19 Fentanyl 25 mcg Intravenous Given by Sandrine Granda RN ejohnson 03:19 PM HR=71 bpm, KCID=252/78 mmhg, SpO2=99 %, Resp=16 B/min 03:19 PM Time: 15:19 Versed 1 mg Intravenous Given by Sandrine Granda RN ejohnson 03:20 PM Hair removed from procedure site in procedure lab using clippers. Bilateral groin prepped with Chloraprep by Maryjo Hillman, then patient was draped. Skin intact. ejohnson 03:21 PM Pressure channel 1 zeroed. 03:22 PM Pressure channel 1 zero failed. 03:22 PM Pressure channel 1 zeroed. 03:23 PM HR=67 bpm, DPVE=046/72 mmhg, SpO2=96.0 %, Resp=18 B/min, Comment=SR 03:28 PM HR=67 bpm, PSAC=486/69 mmhg, SpO2=99.0 %, Resp=20 B/min, Comment=SR 03:29 PM Procedure start 15:29 ejohnson 03:30 PM Time out was performed according to hospital policy. Conscious sedation and anesthesia was achieved (see medication log with in this report above) ejohnson 03:31 PM Time: 15:31 20 ml Lidocaine 2% to right groin Subcutaneous Given by Sagrario Lobo MD, [facility] ejohnson 03:32 PM Access obtained by percutaneous puncture. 5Fr 10cm Terumo Page sheath placed in right Femoral artery. [id number] ejohnson 03:32 PM Patient charges- Angio tray pack, Navilyst 3mm J, Pulse Oximetry and ACIST tubing and transducer ejohnson 03:32 PM 5Fr FL 4 catheter inserted over the wire [facility] ejohnson 03:32 PM 0.035 145cm Navilyst 3mmJ wire [id number] ejohnson 03:33 PM Recorded Pressure: Ao, HR=65, Condition=Condition 1 (Aorta) Ao 161/71/109 03:33 PM LCA angiography performed in multiple views. ejohnson 03:33 PM HR=73 bpm, NBAG=958/70 mmhg, SpO2=99 %, Resp=18 B/min 03:33 PM Time: 15:18 Patient comfortable and pain free: Yes ejohnson 03:34 PM Time: 15:19LOC: 5 = Fully awake and oriented or at pre-proc level ejohnson 03:35 PM Catheter removed over the wire ejohnson 03:35 PM 5Fr FR 4 catheter inserted over the wire DNC ejohnson 03:36 PM Recorded Pressure: Ao, HR=78, Condition=Condition 1 (Aorta) Ao 153/78/113 03:36 PM RCA angiography performed in multiple views. ejohnson 03:36 PM Catheter removed ejohnson 03:36 PM 5Fr Pigtail catheter inserted over the wire DNC ejohnson 03:37 PM Pressure channel 1 zeroed. 03:37 PM Recorded Pressure: LV, HR=91, Condition=Condition 1 (Left Ventricle) LV 177/31/7 03:38 PM Recorded Pressure: LV, Ao, HR=85, Condition=Condition 1 (Left Ventricle) LV 151/40/36, (Aorta) Ao 140/63/99 03:38 PM Catheter crossed the aortic valve and was selectively placed in the left ventricle. Pressures recorded on pullback for left heart catheterization. ejohnson 03:38 PM Bolus angiogram of left Ventricle complete: 8 ml/sec for a total of 24 mls ejohnson 03:38 PM Catheter removed ejohnson 03:38 PM HR=77 bpm, HSFZ=054/78 mmhg, SpO2=99.0 %, Resp=20 B/min, Comment=SR 03:39 PM groin injection ejohnson 03:39 PM Procedure completed at 15:39 02/02/2019 ejohnson 03:40 PM Isovue 370 - 200ml,1 Bottle(s) used. ejohnson 03:41 PM Sign out completed: Radiation Dose 63.82 mGy, 23.6 Gy/cm2 Fluoro Time: 1.1 Isovue 370 - 200ml contrast 52 ml given by Sagrario Lobo MD, [facility]. Complications: None. The patient was discharged out of the engineer geophysical laboratory in stable condition. Sedation minutes 22. Cardiac Rehab Consult needed: No. Confirmed administered medications: Yes ejohnson 03:42 PM Arterial sheath pulled, Mynx closure device used and was Successful S/N. ejohnson 03:42 PM Estimated Blood Loss: minimal ejohnson 03:42 PM Post ECG NSR ejohnson 03:42 PM Post Blood Pressure 187/78 ejohnson 03:43 PM Information taught Mynx ejohnson 03:43 PM Education needs Responsibilities of Patient in Care ejohnson 03:43 PM Learning barriers :None ejohnson 03:43 PM Education Methods Verbal ejohnson 03:43 PM Education evaluation Able to repeat information ejohnson 03:43 PM Site status No bleeding/hematoma - Rt Groin as reported by Maryjo Hillman RT (R) at 15:43 ejohnson 03:43 PM Opsite applied ejohnson 03:43 PM HR=74 bpm, MQIK=731/72 mmhg, XqR0=744.0 %, Resp=20 B/min, Comment=SR 03:45 PM Plavix, Effient or Brilinta given No ejohnson 03:45 PM Delay to floor No ejohnson 03:47 PM Family placed in consult room. ejohnson 03:47 PM Complications: None ejohnson 03:47 PM Coronary Dominance: right ejohnson 03:49 PM Time: 15:33 Patient comfortable and pain free: Yes ejohnson 03:49 PM Report given to Kenrda MCFARLAND Pt taken to E Room #20. 15:48 ejohnson 03:49 PM Time: 15:34LOC: 5 = Fully awake and oriented or at pre-proc level ejohnson 03:51 PM Lesion found in Proximal RCA. Pre Stenosis: 40 Pre SHARDA Flow: ejohnson 03:51 PM Lesion found in Mid RCA. Pre Stenosis: 30 Pre SHARDA Flow: ejohnson 03:51 PM Lesion found in Distal RCA. Pre Stenosis: 30 Pre SHARDA Flow: ejohnson 03:51 PM Lesion found in Proximal LAD. Pre Stenosis: 30 Pre SHARDA Flow: ejohnson 03:52 PM Lesion found in Mid LAD. Pre Stenosis: 40 Pre SHARDA Flow: ejohnson 03:52 PM Lesion found in Proximal Circumflex. Pre Stenosis: 30 Pre SHARDA Flow: ejohnson 03:52 PM Lesion found in 1st Marginal. Pre Stenosis: 40 Pre SHARDA Flow: ejohnson 03:53 PM Proximal Left Anterior Descending Coronary Artery with 30% stenosis. If graft is supplying this territory, 0 % stenosis. ejohnson 03:53 PM Mid/Distal Left Anterior Descending Coronary Artery and diagonal branches with 40% stenosis. If graft is supplying this area, 0 % stenosis ejohnson 03:53 PM Circumflex, Obtuse Marginal, Left Posterior Descending, and Left Posterolateral Coronary Arteries with 40 % stenosis. If graft is supplying this area, 0 % stenosis ejohnson 03:53 PM Right Coronary, Right Posterior Descending Arteries with Right Posterolateral and Acute Marginal branches with 40 % stenosis. If graft is supplying this area, 0 % stenosis ejohnson 03:55 PM Patient out of room: 15:58 ejohnson Complications Complication None Hemodynamics Pressures Site Systolic/A Wave Diastolic/V Wave Mean AO 161 71 109 AO 153 78 113 LV 177 31 7 LV 151 40 36 AO 140 63 99 Post Procedure Information Blood Pressure: 187/78 mmHg Rhythm: NSR Post procedural instructions were given Closure Device Time Device Success/Fail 02/02/2019 3:42:00 PM MynxGrip Successful Site Checks Time Location Status Staff Sheath In? Note 03:43 PM Rt Groin No bleeding/hematoma Maryjo Hillman RT (R) Pulses Time Site Pre-Procedure Post-Procedure Note 02/02/2019 3:15:00 PM Bilateral DP & PT 1+ 02/02/2019 3:15:00 PM Bilateral radial 2+ 02/02/2019 3:45:00 PM Bilateral DP & PT 1+ Updated by Gremaine Knox RN on 02/02/2019 4:01:09 PM Germaine Knox RN electronically signed on 02/02/2019 4:01:47 PM with status of Final
[2019-02-02] MEDS: hydrALAZINE 25 MG TABLET PO SCH (23:43)
[2019-02-03] MEDS ORDERED: Aspirin 81 MG TAB.CHEW PO SCH (09:00)
[2019-02-03] MEDS: hydrALAZINE 25 MG TABLET PO SCH (09:18)
[2019-02-03 11:19] VITALS: BP 158/69
--- NOTE | 2019-02-03 16:21 | Discharge Summary ---
Date of Encounter: 02/03/19 Time of Encounter: 16:19 - Discharge Diagnosis (1) Near syncope Priority: Primary Status: Acute (2) NSTEMI (non-ST elevated myocardial infarction) Priority: Primary Status: Acute (3) CAD (coronary artery disease) Priority: Primary Status: Chronic Qualifiers: Coronary Disease-Associated Artery/Lesion type: [place] artery [place] vs. transplanted heart: [place] heart Associated angina: without angina Qualified Code(s): I25.10 - Atherosclerotic heart disease of [place] coronary artery without angina pectoris (4) HTN (hypertension) Priority: Secondary Status: Chronic Qualifiers: Hypertension type: essential hypertension Qualified Code(s): I10 - Es sential (primary) hypertension Hospital course: HOSPITAL COURSE: The patient is an 88-year-old woman with long-standing hypertension and hyperlipidemia. We admitted her after she had experienced an episode of dizziness/lightheadedness, lasting for about 32-40 minutes. It was not associated with any other symptoms (including chest pain). She had mildly elevated blood pressure at admission. The rest of physical exam was benign. Her troponin was checked on 4 occasions. The first one was 0.23; the last one was 0.11. She has mildly elevated creatinine of 1.22; 0.76 to discharge from (after giving her IV fluids). CT of head/brain did not show any significant abnormalities. Cardiology was consulted. They proceeded with echocardiogram and cardiac catheterization. Echocardiogram showed ejection fraction of 60-65%; with mild-moderate aortic regurgitation, mitral regurgitation, mild pulmonary hypertension, and mild pulmonic regurgitation. Cardiac catheterization showed moderate nonobstructive atherosclerotic coronary artery disease. The patient was stable, not having any symptoms in the last 24 hours preceding that discharge. CONDITION AT DISCHARGE: She feels good. Denies chest pain and difficulty breathing. Denies coughing and wheezing. She ambulates on her own. Skin: Free of rash and discoloration. Respiratory: Normal breath sounds with no crackles and wheezes bilaterally. CV: Heart is regular with no gallop or murmur. GI: Abdomen is flat and soft with no palpable mass or visceromegaly. Neuro exam: There is no focal deficits. Normal speech, swallowing and gait. SEE DISCHARGE ORDERS/MEDICATIONS Discharge discussed with: patient, case management - Time Spent with Patient Total time spent providing and/or coordinating discharge services: Time spent: Greater than 30 minutes (40 minutes...) - Discharge Medications Prescriptions: New Atorvastatin [Lipitor] 80 mg PO HS 30 Days #60 tablet Continue Omeprazole [PriLOSEC] 20 mg PO DAILY Bisoprolol/HCTZ 5/6.25 [Ziac 5/6.25] 1 tab PO BID Whick-3/Dha/Epa/Fish Oil [Fish Oil 1,000 mg Softgel] 1 cap PO HS Aspirin 325 mg PO DAILY #30 tablet Loratadine [Allergy Relief] 10 mg PO DAILY Oxybutynin Chloride [Ditropan Xl] 10 mg PO DAILY Multivit/Ca/Min/Fe/FA [Thera M Plus] 1 tab PO DAILY Changed Losartan Potassium 50 mg PO DAILY 30 Days #60 tablet Discontinued Atorvastatin [Lipitor] 40 mg PO DAILY Home Medications: Bisoprolol/HCTZ 5/6.25 [Ziac 5/6.25] 1 tab PO BID 03/04/16 [History] Whick-3/Dha/Epa/Fish Oil [Fish Oil 1,000 mg Softgel] 1 cap PO HS 03/04/16 [History] Omeprazole [PriLOSEC] 20 mg PO DAILY 03/04/16 [History] Aspirin 325 mg PO DAILY #30 tablet 08/26/16 [Rx] Loratadine [Allergy Relief] 10 mg PO DAILY 01/31/19 [History] Multivit/Ca/Min/Fe/FA [Thera M Plus] 1 tab PO DAILY 01/31/19 [History] Oxybutynin Chloride [Ditropan Xl] 10 mg PO DAILY 01/31/19 [History] Atorvastatin [Lipitor] 80 mg PO HS 30 Days #60 tablet 02/03/19 [Rx] Losartan Potassium 50 mg PO DAILY 30 Days #60 tablet 02/03/19 [Rx] Allergies/Adverse Reactions: Allergy/AdvReac Type Severity Reaction Status Date / Time No Known Allergies Allergy Verified 02/18/16 13:11 Date of admission: 01/31/19 17:33 Primary care physician: Maco Rollins MD Consults: 01/31/19 17:10 Consult to Cardiology [CONS] Stat Comment: Consulting Provider: Cardiology Gianna Reason for Consult: NSTEMI Call Completed: No 01/31/19 17:55 Consult to Cardiology [CONS] Routine Comment: Consulting Provider: Cardiology Gianna Reason for Consult: NSTEMI Call Completed: No Discharging clinician: Rihc Jones Anticipated date of discharge: 02/03/19 - Constitutional Vitals: Temp Pulse Resp BP Pulse Ox 98.7 F 52 16 158/69 95 02/03/19 11:18 02/03/19 06:35 02/03/19 04:15 02/03/19 11:18 02/03/19 11:18 General appearance: Present: A&O X 3, no acute distress, answers questions appropriately Exam: xx - Patient Status Disposition: Home, Self-Care Condition: Good - Discharge Instructions Instructions: Losartan (By mouth), Atorvastatin (By mouth), Left Heart Catheterization (DC), Right Heart Catheterization (DC), Chronic Hypertension (DC) Follow Up With: Maco Rollins MD [Primary Care Provider] - Jeramie Lobo MD [Partnered Physician] - (the office will call you with an appointment if they do not call you by this time next week call them for an appointment) Additional Instructions: Follow-up appointments: If there is not an appointment listed below, please call your physician and schedule a follow-up appointment. If you have congestive heart failure and your symptoms return, make an appointment with your physician. Medication List: Carry an up to date list of medications you are taking at all time. We have given you an updated medication list including any new medications that you have been prescribed. Please provide that list to your primary provider Symptoms: If your condition changes or you experience any of the following symptoms, notify your physician immediately: Unusual or worsening pain, fever, persistent nausea and vomiting, bleeding, increase in swelling (especially in your legs), sudden weight gain, extreme dizziness, chest pain, increased drainage or redness from a wound or incision. Go to the emergency department if you experience a problem with breathing. Weights: If you have a history of swelling or shortness of breath, weigh yourself daily and notify your physician if you have a weight gain of two or more pounds in one day or 5 or more pounds in a week. If you experience any of the warning signs for stroke: Sudden numbness or weakness of the face, arm or leg; especially on one side of the body, sudden confusion, trouble speaking or understanding, sudden trouble seeing in one or both eyes, sudden trouble walking, dizziness, loss of balance or coordination, sudden sever headache with no cause; Call 911 or go to the emergency room. Stroke is a medical emergency. Some risk factors for stroke: Age, cigarette smoking, diabetes, excessive alcohol consumption, family history, high blood pressure, overweight, physical inactivity, prior stroke, heart attack, diagnosis of carotid artery stenosis or other artery disease. If you smoke, STOP: Smoking or tobacco use significantly increases your risk of heart and lung disease. Your chance of disease greatly increases if you continue to smoke. For more information, call the [employer] tobacco quit line for smoking cessation 1-627-OHGY-NOW ( ) FOLLOW-UP WITH PCP -- IN 1-2 WEEKS... - Diet and Activity Activity: increase activity as tolerated Diet: advance to your usual diet
== END 2019-02-03 20:25 | disposition home or self-care (01) | DRG 282 ==
LOC: 2NENU 13:42 → EMEROOARM 13:42 → OBSVTOIN 17:33 → SUATTDRO 17:33 → 2NENU 18:15
PROVIDERS: ADMIT Internal Medicine; ATTEND Internal Medicine

== ENCOUNTER 2021-10-05 07:59 | Inpatient (IN) ==
[2021-10-05] MEDS ORDERED: *HR* Metoprolol 5 MG/5 ML VIAL IVP ONE ×2 (08:19→09:12)
[2021-10-05 08:36] LABS: Basophils % 0.2 %; Hematocrit 39.4 % (35.3-44.9); Hemoglobin 12.9 g/dL (11.5-15.4); Immature Granulocytes % 0.6 % (0-4); Lymphocytes # 1.4 K/mcL (0.6-4.6); Lymphocytes % 10.2 %; Mean Corpuscular HGB Conc 32.7 g/dL (31.6-35.5); Mean Corpuscular Hemoglobin 29.3 pg (28.0-33.3); Mean Corpuscular Volume 89.5 fL (83.0-100.0); Mean Platelet Volume 8.7 fL (9.4-12.4); Monocytes # 0.7 K/mcL (0.0-1.3); Monocytes % 5.1 %; Neutrophils # 11.7 K/mcL (1.6-8.9); Platelet Count 273 K/mcL (140-400); Red Cell Distribution Width 13.2 % (11.5-14.5); Segmented Neutrophils % 83.9 %
[2021-10-05 08:44] LABS: Prothrombin Time 11.5 Seconds (9.4-12.1)
[2021-10-05 08:47] LABS: Activated Partial Thrombo Time 29.8 Seconds (26.0-36.0)
[2021-10-05 09:05] LABS: Alanine Aminotransferase 19 Units/L (7-52); Albumin 4.3 g/dL (3.5-5.7); Albumin/Globulin Ratio 1.5 (1.1-2.2); Alkaline Phosphatase 83 Units/L (34-104); Aspartate Amino Transferase 40 Units/L (13-39); BUN/Creatinine Ratio 21 (6-26); Bilirubin,Direct 0.2 mg/dL (0.0-0.2); Bilirubin,Indirect 0.7 mg/dL (0.0-1.0); Bilirubin,Total 0.9 mg/dL (0.3-1.0); Blood Urea Nitrogen 13 mg/dL (8-23); Calcium 9.5 mg/dL (8.6-10.3); Carbon Dioxide 25 mEq/L (23-29); Chloride 90 mEq/L (98-107); Ethanol < 10 mg/dL (Less than 10); Globulin 2.9 g/dL (2.4-3.5); Glucose 139 mg/dL (70-105); Osmolality,Calculated 262 (280-300); Potassium 3.1 mEq/L (3.5-5.1); Sodium 125 mEq/L (136-145); Total Protein 7.2 g/dL (6.4-8.9); Troponin I 0.12 ng/mL (< 0.04); eGFR For African Americans > 60 (> 60); eGFR For Non-African Americans > 60 (> 60)
[2021-10-05] MEDS ORDERED: *HR* Enoxaparin 40 MG/0.4 ML SYRINGE SQ ONE (09:34)
[2021-10-05] MEDS ORDERED: Acetaminophen 325 MG TABLET PO PRN (09:35)
[2021-10-05] MEDS ORDERED: Ondansetron 4 MG/2 ML VIAL IVP PRN (09:35)
[2021-10-05 09:38] LABS: Amphetamine Screen,Urine Negative ng/mL (Cutoff=1000); Barbiturate Screen,Urine Negative ng/mL (Cutoff=200); Benzodiazepines Screen,Urine Negative ng/mL (Cutoff=200); Cannabinoid Screen,Urine Negative ng/mL (Cutoff = 50); Cocaine Screen,Urine Negative ng/mL (Cutoff= 300); Opiate Screen,Urine Negative ng/mL (Cutoff=300); Phencyclidine Screen,Urine Negative ng/mL (Cutoff=25)
[2021-10-05] MEDS ORDERED: Potassium Chloride Elixir 20 MEQ/15 ML UDC PO ONE (09:38)
[2021-10-05 09:46] LABS: Bilirubin,Urine Negative (Negative); Blood,Urine Small (Negative); Clarity,Urine Clear (Clear); Color,Urine Light-Yellow (Yellow); Glucose,Urine (UA) Normal (Normal); Ketones,Urine Trace mg/dL (Negative); Leukocyte Esterase,Urine Negative (Negative); Nitrite,Urine Negative (Negative); PH,Urine 6.5 pH Units (5.0-8.0); Protein,Urine >=300 mg/dL (Neg-Trace); Specific Gravity,Urine 1.015 (1.010-1.025); Urobilinogen,Urine Normal (Normal); WBC,Urine 0-3 per hpf (0-3)
[2021-10-05] MEDS: 0.9 % Sodium Chloride 1,000 ML IVC SCH ×2 (10:05→21:56)
[2021-10-05 10:19] LABS: Influenza A PCR Negative (Negative); Influenza B PCR Negative (Negative); Resp. Syncytial Virus PCR Negative (Negative)
[2021-10-05 10:21] LABS: SARS-CoV-2 by PCR (In House) Negative (Negative)
[2021-10-05] MEDS: hydrALAZINE 25 MG TABLET PO SCH ×2 (14:24→20:03)
[2021-10-05] MEDS ORDERED: Melatonin 3 MG TABLET PO PRN (21:00)
[2021-10-06 03:07] LABS: Hematocrit 31.3 % (35.3-44.9); Mean Corpuscular HGB Conc 34.2 g/dL (31.6-35.5); Mean Corpuscular Hemoglobin 30.7 pg (28.0-33.3); Mean Corpuscular Volume 89.7 fL (83.0-100.0); Mean Platelet Volume 9.4 fL (9.4-12.4); Platelet Count 266 K/mcL (140-400); Red Blood Count 3.49 M/mcL (3.82-4.97); Red Cell Distribution Width 13.5 % (11.5-14.5); White Blood Count 13.1 K/mcL (4.3-11.1)
[2021-10-06 03:13] LABS: Hemoglobin 10.7 g/dL (11.5-15.4)
[2021-10-06 03:29] LABS: Troponin I 0.09 ng/mL (< 0.04)
[2021-10-06 04:11] LABS: Alanine Aminotransferase 15 Units/L (7-52); Albumin 3.3 g/dL (3.5-5.7); Albumin/Globulin Ratio 1.4 (1.1-2.2); Alkaline Phosphatase 56 Units/L (34-104); Aspartate Amino Transferase 33 Units/L (13-39); BUN/Creatinine Ratio 23 (6-26); Bilirubin,Total 0.6 mg/dL (0.3-1.0); Blood Urea Nitrogen 17 mg/dL (8-23); Calcium 8.2 mg/dL (8.6-10.3); Carbon Dioxide 22 mEq/L (23-29); Chloride 98 mEq/L (98-107); Globulin 2.3 g/dL (2.4-3.5); Glucose 108 mg/dL (70-105); Magnesium 1.5 mg/dL (1.6-2.6); Osmolality,Calculated 268 (280-300); Phosphorous 2.3 mg/dL (2.7-4.5); Potassium 4.4 mEq/L (3.5-5.1); Sodium 128 mEq/L (136-145); Total Protein 5.6 g/dL (6.4-8.9); eGFR For African Americans > 60 (> 60); eGFR For Non-African Americans > 60 (> 60)
[2021-10-06] MEDS: *HR* Enoxaparin 40 MG/0.4 ML SYRINGE SQ SCH (04:51)
[2021-10-06] MEDS: Aspirin 81 MG TAB.CHEW PO SCH (07:58)
[2021-10-06] MEDS: hydrALAZINE 25 MG TABLET PO SCH ×3 (07:58→19:50)
[2021-10-06] MEDS ORDERED: Bisoprolol/HCTZ 5/6.25 TABLET PO SCH (09:00)
[2021-10-06] MEDS: ALPRAZolam 0.25 MG TABLET PO PRN (13:11)
[2021-10-07] MEDS: *HR* Enoxaparin 40 MG/0.4 ML SYRINGE SQ SCH (05:19)
[2021-10-07] MEDS: ALPRAZolam 0.25 MG TABLET PO PRN (07:58)
[2021-10-07] MEDS: hydrALAZINE 25 MG TABLET PO SCH ×3 (07:58→16:35)
[2021-10-07] MEDS: amLODIPine 5 MG TABLET PO SCH (08:04)
[2021-10-07] MEDS: Furosemide 20 MG TABLET PO SCH (08:04)
[2021-10-07] MEDS: Aspirin 81 MG TAB.CHEW PO SCH (08:04)
[2021-10-07 08:37] LABS: Basophils # 0.1 K/mcL (0.0-0.2); Basophils % 0.5 %; Eosinophils % 0.1 %; Hematocrit 34.4 % (35.3-44.9); Hemoglobin 11.4 g/dL (11.5-15.4); Immature Granulocytes % 0.6 % (0-4); Lymphocytes # 1.8 K/mcL (0.6-4.6); Lymphocytes % 11.1 %; Mean Corpuscular HGB Conc 33.1 g/dL (31.6-35.5); Mean Corpuscular Hemoglobin 30.3 pg (28.0-33.3); Mean Corpuscular Volume 91.5 fL (83.0-100.0); Mean Platelet Volume 9.2 fL (9.4-12.4); Monocytes # 1.8 K/mcL (0.0-1.3); Monocytes % 11.3 %; Platelet Count 276 K/mcL (140-400); Red Blood Count 3.76 M/mcL (3.82-4.97); Red Cell Distribution Width 13.5 % (11.5-14.5); Segmented Neutrophils % 76.4 %; White Blood Count 15.7 K/mcL (4.3-11.1)
[2021-10-07 08:55] LABS: BUN/Creatinine Ratio 18 (6-26); Blood Urea Nitrogen 13 mg/dL (8-23); Calcium 9.3 mg/dL (8.6-10.3); Carbon Dioxide 22 mEq/L (23-29); Chloride 98 mEq/L (98-107); Glucose 118 mg/dL (70-105); Magnesium 1.4 mg/dL (1.6-2.6); Osmolality,Calculated 273 (280-300); Phosphorous 2.4 mg/dL (2.7-4.5); Potassium 3.6 mEq/L (3.5-5.1); Sodium 131 mEq/L (136-145); eGFR For African Americans > 60 (> 60); eGFR For Non-African Americans > 60 (> 60)
[2021-10-07] MEDS ORDERED: amLODIPine 5 MG TABLET PO SCH (09:00)
[2021-10-07] MEDS: QUEtiapine Fumarate 25 MG TABLET PO SCH (09:17)
[2021-10-07 19:03] LABS: Bilirubin,Urine Negative (Negative); Blood,Urine Negative (Negative); Clarity,Urine Clear (Clear); Color,Urine Light-Yellow (Yellow); Glucose,Urine (UA) Normal (Normal); Hyaline Casts,Urine Few per lpf (None Seen); Ketones,Urine Negative (Negative); Leukocyte Esterase,Urine Negative (Negative); Mucus,Urine Few per lpf (None-Few); Nitrite,Urine Negative (Negative); PH,Urine 6.5 pH Units (5.0-8.0); Protein,Urine 30 mg/dL (Neg-Trace); RBC,Urine 0-3 per hpf (0-3); Specific Gravity,Urine 1.009 (1.010-1.025); Urobilinogen,Urine Normal (Normal); WBC,Urine 0-3 per hpf (0-3)
[2021-10-08] MEDS: QUEtiapine Fumarate 25 MG TABLET PO SCH ×2 (03:36→08:32)
[2021-10-08] MEDS: hydrALAZINE 25 MG TABLET PO SCH ×2 (03:47→08:32)
[2021-10-08] MEDS: *HR* Enoxaparin 40 MG/0.4 ML SYRINGE SQ SCH (04:51)
[2021-10-08 08:02] LABS: Basophils # 0.1 K/mcL (0.0-0.2); Basophils % 0.7 %; Eosinophils # 0.1 K/mcL (0.0-0.6); Eosinophils % 1.1 %; Hematocrit 32.9 % (35.3-44.9); Hemoglobin 10.7 g/dL (11.5-15.4); Immature Granulocytes % 0.5 % (0-4); Lymphocytes # 1.7 K/mcL (0.6-4.6); Lymphocytes % 16.2 %; Mean Corpuscular HGB Conc 32.5 g/dL (31.6-35.5); Mean Corpuscular Hemoglobin 30.2 pg (28.0-33.3); Mean Corpuscular Volume 92.9 fL (83.0-100.0); Mean Platelet Volume 9.4 fL (9.4-12.4); Monocytes # 1.2 K/mcL (0.0-1.3); Monocytes % 11.2 %; Neutrophils # 7.5 K/mcL (1.6-8.9); Platelet Count 244 K/mcL (140-400); Red Blood Count 3.54 M/mcL (3.82-4.97); Red Cell Distribution Width 13.6 % (11.5-14.5); Segmented Neutrophils % 70.3 %; White Blood Count 10.7 K/mcL (4.3-11.1)
[2021-10-08 08:06] LABS: BUN/Creatinine Ratio 20 (6-26); Blood Urea Nitrogen 17 mg/dL (8-23); Calcium 8.7 mg/dL (8.6-10.3); Carbon Dioxide 26 mEq/L (23-29); Chloride 97 mEq/L (98-107); Glucose 97 mg/dL (70-105); Magnesium 1.5 mg/dL (1.6-2.6); Osmolality,Calculated 275 (280-300); Phosphorous 3.5 mg/dL (2.7-4.5); Potassium 3.3 mEq/L (3.5-5.1); Sodium 132 mEq/L (136-145); eGFR For African Americans > 60 (> 60); eGFR For Non-African Americans > 60 (> 60)
[2021-10-08] MEDS: Aspirin 81 MG TAB.CHEW PO SCH (08:32)
[2021-10-08] MEDS: amLODIPine 5 MG TABLET PO SCH (08:32)
[2021-10-08] MEDS: Furosemide 20 MG TABLET PO SCH (08:32)
[2021-10-08 10:13] VITALS: BP 104/52; PULSE 72; TEMP 98.4; O2SAT 96
== END 2021-10-08 14:04 | disposition home or self-care (01) | DRG 77 ==
LOC: EMEROOARM 07:59 → 2ANU 10:48 → SUATTDRO 10:48 → 2ANU 11:42
PROVIDERS: ADMIT Internal Medicine; ATTEND Internal Medicine

== ENCOUNTER 2021-10-09 14:18 | Observation (INO) ==
[2021-10-09] MEDS ORDERED: Haloperidol Lactate 5 MG/ML VIAL ONE (14:50)
[2021-10-09] MEDS ORDERED: Haloperidol Lactate 5 MG/ML VIAL IM ONE (15:23)
[2021-10-09] MEDS ORDERED: *HR* LORazepam 2 MG/ML VIAL IM ONE (15:50)
[2021-10-09] MEDS ORDERED: 0.9 % Sodium Chloride 1,000 ML IV ONE ×2 (15:50→17:54)
[2021-10-09 15:53] LABS: INR 1.1; Prothrombin Time 12.1 Seconds (9.4-12.1)
[2021-10-09 15:56] LABS: Activated Partial Thrombo Time 23.1 Seconds (26.0-36.0)
[2021-10-09 16:15] LABS: Troponin I 0.04 ng/mL (< 0.04)
[2021-10-09 16:25] LABS: Alanine Aminotransferase 21 Units/L (7-52); Albumin 3.7 g/dL (3.5-5.7); Albumin/Globulin Ratio 1.3 (1.1-2.2); Alkaline Phosphatase 64 Units/L (34-104); Aspartate Amino Transferase 31 Units/L (13-39); BUN/Creatinine Ratio 24 (6-26); Bilirubin,Direct 0.1 mg/dL (0.0-0.2); Bilirubin,Indirect 0.6 mg/dL (0.0-1.0); Bilirubin,Total 0.7 mg/dL (0.3-1.0); Blood Urea Nitrogen 35 mg/dL (8-23); Calcium 8.6 mg/dL (8.6-10.3); Carbon Dioxide 18 mEq/L (23-29); Chloride 96 mEq/L (98-107); Creatine Kinase 352 Units/L (30-223); Ethanol < 10 mg/dL (Less than 10); Globulin 2.8 g/dL (2.4-3.5); Glucose 157 mg/dL (70-105); Osmolality,Calculated 285 (280-300); Potassium 3.1 mEq/L (3.5-5.1); Sodium 132 mEq/L (136-145); Thyroid Stimulating Hormone 1.777 mcIU/mL (0.340-5.600); Total Protein 6.5 g/dL (6.4-8.9); eGFR For African Americans 42 (> 60); eGFR For Non-African Americans 35 (> 60)
[2021-10-09 17:12] LABS: Basophils # 0.1 K/mcL (0.0-0.2); Basophils % 0.4 %; Eosinophils % 0.1 %; Hematocrit 33.2 % (35.3-44.9); Hemoglobin 10.9 g/dL (11.5-15.4); Immature Granulocytes % 0.5 % (0-4); Lymphocytes # 1.3 K/mcL (0.6-4.6); Mean Corpuscular HGB Conc 32.8 g/dL (31.6-35.5); Mean Corpuscular Hemoglobin 29.5 pg (28.0-33.3); Mean Corpuscular Volume 89.7 fL (83.0-100.0); Mean Platelet Volume 9.4 fL (9.4-12.4); Monocytes # 1.5 K/mcL (0.0-1.3); Monocytes % 9.8 %; Neutrophils # 11.9 K/mcL (1.6-8.9); Platelet Count 268 K/mcL (140-400); Red Cell Distribution Width 13.5 % (11.5-14.5); Segmented Neutrophils % 80.2 %; White Blood Count 14.9 K/mcL (4.3-11.1)
[2021-10-09] MEDS ORDERED: Naloxone 0.4 MG/ML INJ IVP PRN (17:23)
[2021-10-09] MEDS ORDERED: *HR* Metoprolol 5 MG/5 ML VIAL IVP PRN (17:51)
[2021-10-09] MEDS ORDERED: 0.9 % Sodium Chloride 1,000 ML ONE (17:56)
[2021-10-09] MEDS ORDERED: *HR* Heparin 5,000 UNIT/ML VIAL IVP PRN ×2 (17:59)
[2021-10-09] MEDS ORDERED: *HR* Heparin 5,000 UNIT/ML VIAL IVP ONE (17:59)
[2021-10-09] MEDS ORDERED: Perflutren Lipid Microsphere 1.3 ML in 0.9 % Sodium Chloride 8.7 ML IVP PRN (17:59)
[2021-10-09] MEDS ORDERED: Heparin 25,000 UNIT/250 ML 25,000 UNIT/250 ML IV.SOLN IVC SCH (18:00)
[2021-10-09] MEDS: 0.9 % Sodium Chloride w KCl 20 MEQ/1,000 ML MLS IVC SCH (19:07)
[2021-10-10 03:26] LABS: Basophils # 0.1 K/mcL (0.0-0.2); Basophils % 0.6 %; Eosinophils # 0.2 K/mcL (0.0-0.6); Eosinophils % 1.9 %; Hematocrit 31.2 % (35.3-44.9); Hemoglobin 10.1 g/dL (11.5-15.4); Immature Granulocytes % 0.4 % (0-4); Lymphocytes % 19.8 %; Mean Corpuscular HGB Conc 32.4 g/dL (31.6-35.5); Mean Corpuscular Hemoglobin 29.4 pg (28.0-33.3); Mean Corpuscular Volume 90.7 fL (83.0-100.0); Mean Platelet Volume 9.4 fL (9.4-12.4); Monocytes # 1.2 K/mcL (0.0-1.3); Monocytes % 12.1 %; Neutrophils # 6.4 K/mcL (1.6-8.9); Platelet Count 266 K/mcL (140-400); Red Blood Count 3.44 M/mcL (3.82-4.97); Red Cell Distribution Width 13.6 % (11.5-14.5); Segmented Neutrophils % 65.2 %; White Blood Count 9.8 K/mcL (4.3-11.1)
[2021-10-10 03:43] LABS: BUN/Creatinine Ratio 28 (6-26); Blood Urea Nitrogen 21 mg/dL (8-23); Carbon Dioxide 23 mEq/L (23-29); Chloride 104 mEq/L (98-107); Glucose 97 mg/dL (70-105); Osmolality,Calculated 281 (280-300); Potassium 3.7 mEq/L (3.5-5.1); Sodium 134 mEq/L (136-145); eGFR For African Americans > 60 (> 60); eGFR For Non-African Americans > 60 (> 60)
[2021-10-10 04:08] LABS: Folate 10.9 ng/mL (3.0-16.0)
[2021-10-10 05:30] LABS: Bilirubin,Urine Negative (Negative); Blood,Urine Negative (Negative); Clarity,Urine Clear (Clear); Color,Urine Light-Yellow (Yellow); Glucose,Urine (UA) Normal (Normal); Ketones,Urine Negative (Negative); Leukocyte Esterase,Urine Negative (Negative); Nitrite,Urine Negative (Negative); PH,Urine 6.5 pH Units (5.0-8.0); Protein,Urine Negative (Neg-Trace); Specific Gravity,Urine 1.014 (1.010-1.025); Urobilinogen,Urine Normal (Normal)
[2021-10-10 05:40] LABS: Creatinine,Urine 58 mg/dL; Sodium, Urine 119.6 mEq/L
[2021-10-10 06:24] LABS: Amphetamine Screen,Urine Negative ng/mL (Cutoff=1000); Barbiturate Screen,Urine Negative ng/mL (Cutoff=200)
[2021-10-10 06:25] LABS: Benzodiazepines Screen,Urine Negative ng/mL (Cutoff=300); Cannabinoid Screen,Urine Negative ng/mL (Cutoff = 50); Cocaine Screen,Urine Negative ng/mL (Cutoff= 300); Opiate Screen,Urine Negative ng/mL (Cutoff=300); Phencyclidine Screen,Urine Negative ng/mL (Cutoff=25)
[2021-10-10] MEDS ORDERED: *HR* Labetalol 20 MG/4 ML SYRINGE IVP PRN (07:53)
[2021-10-10] MEDS: 0.9 % Sodium Chloride w KCl 20 MEQ/1,000 ML MLS IVC SCH ×2 (08:46→14:14)
[2021-10-10] MEDS: Acetaminophen 325 MG TABLET PO PRN ×2 (10:20→20:40)
[2021-10-10] MEDS ORDERED: Heparin 25,000UNIT/250ML 1/2NS 25,000 UNIT/250 ML IV.SOLN IVC SCH ×2 (17:45→19:30)
[2021-10-10] MEDS: hydrALAZINE 25 MG TABLET PO SCH (20:41)
[2021-10-11 02:27] LABS: Basophils # 0.1 K/mcL (0.0-0.2); Basophils % 0.6 %; Eosinophils # 0.2 K/mcL (0.0-0.6); Eosinophils % 2.2 %; Hematocrit 30.9 % (35.3-44.9); Hemoglobin 10.1 g/dL (11.5-15.4); Immature Granulocytes % 0.3 % (0-4); Lymphocytes # 2.1 K/mcL (0.6-4.6); Lymphocytes % 21.7 %; Mean Corpuscular HGB Conc 32.7 g/dL (31.6-35.5); Mean Corpuscular Hemoglobin 30.1 pg (28.0-33.3); Mean Platelet Volume 9.1 fL (9.4-12.4); Monocytes # 1.2 K/mcL (0.0-1.3); Monocytes % 12.2 %; Platelet Count 271 K/mcL (140-400); Red Blood Count 3.36 M/mcL (3.82-4.97); Red Cell Distribution Width 13.5 % (11.5-14.5); White Blood Count 9.6 K/mcL (4.3-11.1)
[2021-10-11 02:42] LABS: Alanine Aminotransferase 16 Units/L (7-52); Albumin/Globulin Ratio 1.3 (1.1-2.2); Alkaline Phosphatase 53 Units/L (34-104); Aspartate Amino Transferase 21 Units/L (13-39); BUN/Creatinine Ratio 19 (6-26); Bilirubin,Direct 0.1 mg/dL (0.0-0.2); Bilirubin,Indirect 0.4 mg/dL (0.0-1.0); Bilirubin,Total 0.5 mg/dL (0.3-1.0); Blood Urea Nitrogen 13 mg/dL (8-23); Calcium 8.1 mg/dL (8.6-10.3); Carbon Dioxide 23 mEq/L (23-29); Chloride 103 mEq/L (98-107); Globulin 2.3 g/dL (2.4-3.5); Glucose 95 mg/dL (70-105); Magnesium 1.5 mg/dL (1.6-2.6); Osmolality,Calculated 274 (280-300); Potassium 4.3 mEq/L (3.5-5.1); Sodium 132 mEq/L (136-145); Total Protein 5.3 g/dL (6.4-8.9); eGFR For African Americans > 60 (> 60); eGFR For Non-African Americans > 60 (> 60)
[2021-10-11] MEDS: 0.9 % Sodium Chloride w KCl 20 MEQ/1,000 ML MLS IVC SCH ×2 (03:34→20:38)
[2021-10-11] MEDS: hydrALAZINE 25 MG TABLET PO SCH ×3 (07:55→20:36)
[2021-10-11] MEDS ORDERED: Isosorbide MONOnitrate (24 HR) 60 MG TAB.ER.24H PO SCH (09:00)
[2021-10-11] MEDS ORDERED: *HR* Labetalol 20 MG/4 ML SYRINGE IVP PRN (13:54)
[2021-10-11] MEDS: *HR* Rivaroxaban 10 MG TABLET PO SCH (18:46)
[2021-10-11] MEDS ORDERED: carvediloL 6.25 MG TABLET PO SCH (20:00)
[2021-10-12 06:19] LABS: Basophils # 0.1 K/mcL (0.0-0.2); Basophils % 0.7 %; Eosinophils # 0.3 K/mcL (0.0-0.6); Hematocrit 33.8 % (35.3-44.9); Hemoglobin 10.8 g/dL (11.5-15.4); Immature Granulocytes % 0.4 % (0-4); Lymphocytes # 2.1 K/mcL (0.6-4.6); Lymphocytes % 18.2 %; Mean Corpuscular Hemoglobin 29.3 pg (28.0-33.3); Mean Corpuscular Volume 91.6 fL (83.0-100.0); Mean Platelet Volume 9.2 fL (9.4-12.4); Monocytes # 1.1 K/mcL (0.0-1.3); Monocytes % 9.7 %; Neutrophils # 7.8 K/mcL (1.6-8.9); Platelet Count 294 K/mcL (140-400); Red Blood Count 3.69 M/mcL (3.82-4.97); Red Cell Distribution Width 13.3 % (11.5-14.5); White Blood Count 11.5 K/mcL (4.3-11.1)
[2021-10-12 06:32] LABS: BUN/Creatinine Ratio 14 (6-26); Blood Urea Nitrogen 10 mg/dL (8-23); Carbon Dioxide 24 mEq/L (23-29); Chloride 100 mEq/L (98-107); Glucose 114 mg/dL (70-105); Magnesium 1.8 mg/dL (1.6-2.6); Osmolality,Calculated 270 (280-300); Potassium 4.3 mEq/L (3.5-5.1); Sodium 130 mEq/L (136-145); eGFR For African Americans > 60 (> 60); eGFR For Non-African Americans > 60 (> 60)
[2021-10-12] MEDS: Isosorbide MONOnitrate (24 HR) 60 MG TAB.ER.24H PO SCH (07:42)
[2021-10-12] MEDS: Aspirin 81 MG TAB.CHEW PO SCH (07:43)
[2021-10-12] MEDS: hydrALAZINE 25 MG TABLET PO SCH ×3 (07:43→20:20)
[2021-10-12] MEDS ORDERED: carvediloL 6.25 MG TABLET PO SCH (08:00)
[2021-10-12] MEDS ORDERED: carvediloL 6.25 MG TABLET PO ONE (08:24)
[2021-10-12] MEDS: carvediloL 25 MG TABLET PO SCH (16:21)
[2021-10-12] MEDS: *HR* Rivaroxaban 10 MG TABLET PO SCH (16:22)
[2021-10-12] MEDS: Acetaminophen 325 MG TABLET PO PRN (16:22)
[2021-10-12] MEDS ORDERED: carvediloL 25 MG TABLET PO SCH (17:00)
[2021-10-12] MEDS: 0.9 % Sodium Chloride w KCl 20 MEQ/1,000 ML MLS IVC SCH (19:20)
[2021-10-13 01:34] LABS: Basophils # 0.1 K/mcL (0.0-0.2); Basophils % 0.9 %; Eosinophils # 0.4 K/mcL (0.0-0.6); Eosinophils % 3.9 %; Hematocrit 29.2 % (35.3-44.9); Hemoglobin 9.7 g/dL (11.5-15.4); Immature Granulocytes % 0.5 % (0-4); Lymphocytes # 2.2 K/mcL (0.6-4.6); Lymphocytes % 24.1 %; Mean Corpuscular HGB Conc 33.2 g/dL (31.6-35.5); Mean Corpuscular Hemoglobin 30.4 pg (28.0-33.3); Mean Corpuscular Volume 91.5 fL (83.0-100.0); Mean Platelet Volume 9.2 fL (9.4-12.4); Monocytes # 0.9 K/mcL (0.0-1.3); Monocytes % 9.8 %; Neutrophils # 5.6 K/mcL (1.6-8.9); Platelet Count 271 K/mcL (140-400); Red Blood Count 3.19 M/mcL (3.82-4.97); Red Cell Distribution Width 13.2 % (11.5-14.5); Segmented Neutrophils % 60.8 %; White Blood Count 9.2 K/mcL (4.3-11.1)
[2021-10-13 01:51] LABS: BUN/Creatinine Ratio 18 (6-26); Blood Urea Nitrogen 14 mg/dL (8-23); Calcium 8.7 mg/dL (8.6-10.3); Carbon Dioxide 24 mEq/L (23-29); Chloride 99 mEq/L (98-107); Glucose 103 mg/dL (70-105); Magnesium 1.7 mg/dL (1.6-2.6); Osmolality,Calculated 271 (280-300); Potassium 4.1 mEq/L (3.5-5.1); Sodium 130 mEq/L (136-145); eGFR For African Americans > 60 (> 60); eGFR For Non-African Americans > 60 (> 60)
[2021-10-13] MEDS: Isosorbide MONOnitrate (24 HR) 60 MG TAB.ER.24H PO SCH (07:58)
[2021-10-13] MEDS: Aspirin 81 MG TAB.CHEW PO SCH (07:59)
[2021-10-13] MEDS: carvediloL 25 MG TABLET PO SCH (07:59)
[2021-10-13] MEDS: hydrALAZINE 25 MG TABLET PO SCH ×2 (07:59→14:28)
[2021-10-13 14:12] VITALS: BP 124/57; PULSE 65; TEMP 98; O2SAT 94
== END 2021-10-13 16:09 | disposition home health service (06) ==
LOC: 3BNU 14:18 → EMEROOARM 14:18 → SUATTDRO 17:54 → 3BNU 18:32
PROVIDERS: ADMIT Internal Medicine; ATTEND Pharmacist